=== PATIENT | male | born 1960 | race Caucasian/White ===

== ENCOUNTER 2017-01-05 15:51 | Emergency (ER) | payer BC ==
[~2017-01-05] VITALS: Ht 172.7 cm; Wt 63.9 kg
[~2017-01-05 15:51] MED LIST: OXYC-57 PO
[2017-01-05 15:56] VITALS: TEMP 36.8; Ht 172.7 cm; Wt 63.9 kg
[2017-01-05] MEDS ORDERED: DLSYL PO (16:08)
[2017-01-05] MEDS ORDERED: ALBUT/IPRATROP 3MG/0.5MG NEB 3 ML VIAL INH STA (16:28)
[2017-01-05] MEDS ORDERED: OPTIRAY 320 IV PRN (16:45)
[2017-01-05 16:48] LABS: BASO % 0.4 %; BASO ABS # 0.03 K/uL (0-0.2); COMPLETE YES; EOS % 9.7 %; HEMATOCRIT 41.6 % (42-52); IG% 0.3 %; LYMPH % 18.6 %; LYMPH ABS # 1.39 K/uL (1.2-3.4); MEAN CELL VOLUME 87.6 fL (80-100); MEAN CORPUSCULAR HEMOGLOBIN 30.1 pg (25-34); MEAN CORPUSCULAR HGB CONC 34.4 g/dl (32-36); MEAN PLATELET VOLUME 10.3 fL (7.4-10.4); MONO % 10.9 %; NEUT % 60.1 %; PLATELET COUNT 245 K/uL (130-400); RED BLOOD COUNT 4.75 M/uL (4.7-6.1); WHITE BLOOD COUNT 7.46 K/uL (4.8-10.8)
[2017-01-05 17:09] LABS: BLOOD UREA NITROGEN 12 mg/dl (7-18); BUN/CREATININE RATIO 12.5 (10-20); C-REACTIVE PROTEIN < 0.29 mg/dl (0-0.29); CALCIUM 8.5 mg/dl (8.5-10.1); CARBON DIOXIDE 24 mmol/L (21-32); CHLORIDE 111 mmol/L (98-107); CREATININE 0.97 mg/dl (0.60-1.40); GLUCOSE 88 mg/dl (70-99); POTASSIUM 3.7 mmol/L (3.5-5.1); SODIUM 143 mmol/L (136-145)
--- NOTE | 2017-01-05 17:53 | DIAGNOSTIC IMAGING REPORT ---
CT ANGIOGRAM OF THE CHEST CLINICAL HISTORY: Cough and dyspnea. COMPARISON STUDY: Abdominal CT dated 11/05/2009. TECHNIQUE: Following the IV administration of 101 cc of Optiray 320, CT angiogram of the chest was performed from the upper abdomen to the thoracic inlet utilizing the pulmonary embolus protocol. Images are reviewed in the axial, sagittal, and coronal planes. 3-D MIPS images are created and assessed. IV contrast was administered without complication. Note that interpretation is suboptimal without plain film correlate. CT DOSE: 216.65 mGy.cm FINDINGS: Thyroid: Imaged portions of the thyroid gland are normal in size and attenuation. Thoracic aorta: The thoracic aorta is normal in caliber and demonstrates standard 3-vessel arch anatomy. No dissection is seen. Pulmonary vasculature: The pulmonary trunk is normal in caliber. There are no filling defects identified in main, lobar, or segmental pulmonary branches to suggest pulmonary embolus. Heart: The heart is normal in size and configuration, and without pericardial effusion. Lungs and pleural spaces: There is no airspace consolidation or pleural effusion. Mild diffuse peribronchial thickening suggests reactive airway disease. Minimal dependent atelectasis is noted. The trachea and central airways are clear. A 3 mm anterior pleural-based nodule in the right middle lobe seen on image #95 is unchanged from 2009 and is of doubtful significance. Mediastinum: There are mildly enlarged mediastinal lymph nodes. A prevascular node on image #189 measures 1.2 cm short axis. A subcarinal node on image #160 measures 1.3 cm in short axis. Luba: There are mildly enlarged bilateral hilar lymph nodes. These measure up to 8 mm in short axis. Axillae: There is no axillary lymphadenopathy. Upper abdomen: Partially visualized upper abdominal viscera is within normal limits. Skeletal structures: No lytic or blastic bony lesions are seen. IMPRESSION: 1. There is no evidence of pulmonary embolus in the main, lobar, or segmental pulmonary arteries. 2. There is no airspace consolidation or pleural effusion. Mild diffuse peribronchial thickening suggests reactive air disease. Clinical correlation will be required. 3. Mildly enlarged mediastinal and hilar lymph nodes are nonspecific and may be on a reactive basis. Electronically signed by: Miguel Angel Verde M.D. 01/05/2017 5:51 PM Dictated Date/Time: 01/05/2017 5:46 PM
[2017-01-05] MEDS ORDERED: ALBUTEROL HFA 8 GM INHALER INH ONE (18:45)
[2017-01-05] MEDS ORDERED: HYDR5SYP11 PO (18:48)
[2017-01-05 19:19] VITALS: BP 120/82; PULSE 64; O2SAT 97
--- NOTE | 2017-01-05 23:28 | EMERGENCY ROOM VISIT NOTE ---
History First contact with patient: 16:11 Chief Complaint: COUGH Stated Complaint: COUGH, WHEEZING, UNBALE TO SLEEP Nursing Triage Summary: Pt states cough since . Has seen by PCP 3x. Pt states wheezing and unable to sleep more than two hours at night. History of Present Illness The patient is a 56 year old male who presents to the Emergency Room with complaints of persistent cough and shortness of breath since 10/26/2016. 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 He reports that the anti -freeze, used to heat the cab, leaked into the bottom of the cab. The patient reports that he had respiratory distress at that time. He then developed cold 3 days later with sore throat, myalgias, runny nose and sinus congestion. Since that time, the patient reports that he has had mentioned improvement and worsening of his condition. He has been on 2 different rounds of azithromycin, and recently treated with Augmentin. His last chest x-ray 2 weeks ago was normal. The patient reports that he is unable to sleep because of wheezing and cough. He is now complaining of generalized chest discomfort from coughing. The patient has an appointment to see Dr. Dodson, superintendent factory, on 01/10/17. He was referred to the emergency department because of worsening condition. The patient denies any abdominal pain, back pain, fevers or chills. He denies any discomfort radiating into the neck or arms. He denies headache. The patient denies any prior history of chronic lung issues. He currently rates his discomfort a 3 out of 10, which she again attributes to coughing. Review of Systems HEENT: Denies dizziness, visual problems, hearing loss, tinnitus. Denies difficulty swallowing or oral lesions. PULMONARY: See history of present illness. CARDIOVASCULAR: Denies palpitations, dyspnea on exertion, orthopnea or peripheral edema. GASTROINTESTINAL: Denies diarrhea, constipation, nausea, vomiting, or abdominal pain. GENITOURINARY: Denies dysuria, frequency, urgency or nocturia. NEUROLOGIC: Denies history of epilepsy, CVA, TIA or chronic headaches. MUSCULOSKELETAL: Denies history of joint tenderness/swelling. SKIN: Denies rashes or lesions. PSYCHIATRIC: Denies history of depression or mental illness. ENDOCRINE: Denies history of diabetes or thyroid disorders. Past Medical/Surgical History Medical Problems: (1) Calculus Of Kidney (2) Keratoderma, Acquired (3) Sciatica, Right Side (4) Unspecified sinusitis (chronic) Family History Unremarkable Social History Smoking Status: Never Smoker Alcohol Use: occasionally Marital Status: Housing Status: lives with family Occupation Status: employed Current/Historical Medications Scheduled PRN Dextromethorphan Polymr Complx (Delsym), 10 ML PO DAILY PRN for Cough Hydrocodone W/ Homatropine (Hycodan 5/1.5MG 5 Ml), 5-10 ML PO Q4H PRN for Cough Allergies Coded Allergies: No Known Allergies (Unverified , NONE, 01/05/17) Physical Exam Vital Signs Date Time Temp Pulse Resp B/P Pulse Ox O2 Delivery O2 Flow Rate FiO2 01/05/17 19:19 64 120/82 97 01/05/17 17:42 75 16 103/72 95 Room Air 01/05/17 16:08 78 01/05/17 15:56 36.8 85 18 130/85 95 Room Air Physical Exam CONSTITUTIONAL: Healthy and well nourished. Alert and oriented X 3 with positive affect. The patient has a frequent nonproductive cough. HEENT: Normocephalic, atraumatic. Pupils equal, round and reactive. No scleral icterus or conjunctival injection. No subconjunctival hemorrhage. OROPHARYNX: No tonsillar hypertrophy, postnasal drip or exudates. NECK: Full active range of motion without discomfort. No JVD or carotid bruits. LYMPHATICS: No cervical chain adenopathy. RESPIRATORY: The patient has expiratory wheezing and a few crackles in the left posterior lung hall. No bronchial rhonchi appreciated. CARDIOVASCULAR: Regular rate and rhythm with no murmurs, rubs or gallops. GASTROINTESTINAL: Bowel sounds present in all quadrants. Soft and nontender to palpation. MUSCULOSKELETAL: Full range of motion of all joints without discomfort. INTEGUMENTARY: No rash or other significant dermatologic conditions noted. NEUROLOGIC: No focal neurologic deficits noted. Medical Decision & Procedures ER Provider Diagnostic Interpretation: Chest CT angiography does not show any evidence for consolidations or pulmonary emboli. Radiologist is suggesting a reactive airway process. Radiologist report is as follows: CT ANGIOGRAM OF THE CHEST CLINICAL HISTORY: Cough and dyspnea. COMPARISON STUDY: Abdominal CT dated 11/05/2009. TECHNIQUE: Following the IV administration of 101 cc of Optiray 320, CT angiogram of the chest was performed from the upper abdomen to the thoracic inlet utilizing the pulmonary embolus protocol. Images are reviewed in the axial, sagittal, and coronal planes. 3-D MIPS images are created and assessed. IV contrast was administered without complication. Note that interpretation is suboptimal without plain film correlate. CT DOSE: 216.65 mGy.cm FINDINGS: Thyroid: Imaged portions of the thyroid gland are normal in size and attenuation. Thoracic aorta: The thoracic aorta is normal in caliber and demonstrates standard 3-vessel arch anatomy. No dissection is seen. Pulmonary vasculature: The pulmonary trunk is normal in caliber. There are no filling defects identified in main, lobar, or segmental pulmonary branches to suggest pulmonary embolus. Heart: The heart is normal in size and configuration, and without pericardial effusion. Lungs and pleural spaces: There is no airspace consolidation or pleural effusion. Mild diffuse peribronchial thickening suggests reactive airway disease. Minimal dependent atelectasis is noted. The trachea and central airways are clear. A 3 mm anterior pleural-based nodule in the right middle lobe seen on image #95 is unchanged from 2009 and is of doubtful significance. Mediastinum: There are mildly enlarged mediastinal lymph nodes. A prevascular node on image #189 measures 1.2 cm short axis. A subcarinal node on image #160 measures 1.3 cm in short axis. Luba: There are mildly enlarged bilateral hilar lymph nodes. These measure up to 8 mm in short axis. Axillae: There is no axillary lymphadenopathy. Upper abdomen: Partially visualized upper abdominal viscera is within normal limits. Skeletal structures: No lytic or blastic bony lesions are seen. IMPRESSION: 1. There is no evidence of pulmonary embolus in the main, lobar, or segmental pulmonary arteries. 2. There is no airspace consolidation or pleural effusion. Mild diffuse peribronchial thickening suggests reactive air disease. Clinical correlation will be required. 3. Mildly enlarged mediastinal and hilar lymph nodes are nonspecific and may be on a reactive basis. Laboratory Results 01/05/17 16:30 Red Blood Count 4.75, Mean Corpuscular Volume 87.6, Mean Corpuscular Hemoglobin 30.1, Mean Corpuscular Hemoglobin Concent 34.4, Mean Platelet Volume 10.3, Neutrophils (%) (Auto) 60.1, Lymphocytes (%) (Auto) 18.6, Monocytes (%) (Auto) 10.9, Eosinophils (%) (Auto) 9.7, Basophils (%) (Auto) 0.4, Neutrophils # (Auto ) 4.49, Lymphocytes # (Auto) 1.39, Monocytes # (Auto) 0.81, Eosinophils # (Auto ) 0.72, Basophils # (Auto) 0.03 01/05/17 16:30 Test 01/05/17 16:30 White Blood Count 7.46 K/uL (4.8-10.8) Red Blood Count 4.75 M/uL (4.7-6.1) Hemoglobin 14.3 g/dL (14.0-18.0) Hematocrit 41.6 % (42-52) Mean Corpuscular Volume 87.6 fL (80-100) Mean Corpuscular Hemoglobin 30.1 pg (25-34) Mean Corpuscular Hemoglobin Concent 34.4 g/dl (32-36) Platelet Count 245 K/uL (130-400) Mean Platelet Volume 10.3 fL (7.4-10.4) Neutrophils (%) (Auto) 60.1 % Lymphocytes (%) (Auto) 18.6 % Monocytes (%) (Auto) 10.9 % Eosinophils (%) (Auto) 9.7 % Basophils (%) (Auto) 0.4 % Neutrophils # (Auto) 4.49 K/uL (1.4-6.5) Lymphocytes # (Auto) 1.39 K/uL (1.2-3.4) Monocytes # (Auto) 0.81 K/uL (0.11-0.59) Eosinophils # (Auto) 0.72 K/uL (0-0.5) Basophils # (Auto) 0.03 K/uL (0-0.2) RDW Standard Deviation 43.3 fL (36.4-46.3) RDW Coefficient of Variation 13.5 % (11.5-14.5) Immature Granulocyte % (Auto) 0.3 % Immature Granulocyte # (Auto) 0.02 K/uL (0.00-0.02) Erythrocyte Sedimentation Rate 5 mm/hr (0-14) Anion Gap 8.0 mmol/L (3-11) Est Creatinine Clear Calc Drug Dose 75.0 ml/min Estimated GFR () 99.3 Estimated GFR (Non- 85.7 BUN/Creatinine Ratio 12.5 (10-20) Calcium Level 8.5 mg/dl (8.5-10.1) C-Reactive Protein < 0.29 mg/dl (0-0.29) The above labs were reviewed and were grossly normal. Sedimentation rate and CRP, along with white count, are normal. Medications Administered Medications (Trade) Dose Ordered Sig/Yvrose Route Start Time Stop Time Status Last Admin Dose Admin Albuterol/ Ipratropium (Duoneb) 3 ml NOW STAT INH 01/05/17 16:28 01/05/17 16:30 DC 01/05/17 16:33 3 ML Albuterol (Ventolin Hfa Inhaler) 2 puffs NOW ONCE INH 01/05/17 18:45 01/05/17 18:46 DC 01/05/17 19:13 2 PUFFS Procedure The patient received a unit dose DuoNeb treatment with significant relief of his cough. ED Course Patient history and physical exam were performed. Nurse's notes were reviewed. Vital signs were reviewed and normal with an O2 saturation of 97% on my exam. He is also normotensive and afebrile. Heart rate is also normal. Because the patient has had no resolution of his symptoms with antibiotic, steroid and inhaler treatment, I did elect to perform a more extensive workup. IV access was established, and labs were drawn. Labs were reviewed and were normal. The patient was administered a DuoNeb treatment with moderately of his cough. Chest CT angiography shows no evidence for consolidations or ulnar emboli. A reactive airway process is suggested. The patient was dispensed a Ventolin metered-dose inhaler and AeroChamber. He was instructed to follow-up with Dr. Dodson as currently scheduled. I will defer further antibiotic and corticosteroid treatment at this time as it has not seemed to make any improvement in the patient's symptoms. The patient was provided a prescription for Hycodan cough syrup as he has not been able to sleep because of the cough. He was warned about sedation while taking Hycodan. The patient and were happy with plan of care, and voiced understanding of all discharge instructions. Medical Decision She presents to the emergency department with a 2+ month history of cough and shortness of breath. The patient did initially have possible chemical irritation with antifreeze. Shortly after that, he also developed viral upper respiratory symptoms. The patient has not responded well to antibiotics, corticosteroids or other OTC medications. His workup today does not show any evidence for pneumonia or pulmonary emboli. CT studies do show a reactive airway process. Do not suspect cardiac etiology. Impression Primary Impression: Reactive airway disease with acute exacerbation Departure Information Prescriptions Hydrocodone W/ Homatropine (HYCODAN 5/1.5MG 5 ML) 1 Syp Syp 5-10 ML PO Q4H Y for Cough, #200 ML Prov: Lopez Alvarenga PA 01/05/17 Referrals Tommy Luis PA-C (PCP) Patient Instructions My [facility]
== END 2017-01-05 19:20 | disposition home or self-care (01) ==
LOC: C.EDB 15:52 → C.EDA 19:20
DX: J45.901 Unspecified asthma with (acute) exacerbation (principal); Z87.442 Personal history of urinary calculi; M54.31 Sciatica, right side; J32.9 Chronic sinusitis, unspecified

== ENCOUNTER → 2017-05-08 | Outpatient (CLI) | payer BC ==
[~2017-05-08] MED LIST changes: +DLSYL PO; +OPTIRAY 320 IV PRN; -OXYC-57 PO
--- NOTE | 2017-05-08 16:27 | DIAGNOSTIC IMAGING REPORT ---
CT OF THE CHEST WITH IV CONTRAST CLINICAL HISTORY: Abnormal finding on lung imaging. COMPARISON STUDY: Chest CT January 05, 2017. TECHNIQUE: Following IV administration of 93 mL of Optiray-320, helical axial images of the chest were obtained. Sagittal and coronal reconstructions were viewed as well as maximal intensity projections on an independent 3-D workstation CT DOSE: 215.91 mGycm FINDINGS: No enlarged thoracic lymph nodes are present. The previously described mildly enlarged mediastinal and hilar lymph nodes shown on exam of January 05, 2017 are now normal in size. The size of the heart is normal. There is no pericardial effusion. The central airways are patent. A few tiny subpleural nodules are unchanged and are benign. No new nodules are present. There is no consolidation to suggest pneumonia. Bronchial wall thickening shown on prior CT has resolved. The bony thorax and upper abdomen are unremarkable. IMPRESSION: 1. Interval resolution of mediastinal and hilar lymphadenopathy shown on CT of January 05, 2017. 2. Interval resolution of bronchial wall thickening shown on prior CT. 3. No acute intrathoracic findings. Electronically signed by: Jeremiah Suoza M.D. 05/08/2017 4:26 PM Dictated Date/Time: 05/08/2017 4:18 PM
== END | disposition home or self-care (01) ==
LOC: C.CTS 15:58
PROVIDERS: ATTEND Physician Assistant Medical
DX: R91.8 Other nonspecific abnormal finding of lung field (principal)

== ENCOUNTER → 2017-09-13 | Outpatient (CLI) | payer BC ==
[~2017-09-13] MED LIST changes: -OPTIRAY 320 IV PRN
--- NOTE | 2017-09-13 14:53 | DIAGNOSTIC IMAGING REPORT ---
SINUSES-MAXILLOFACIAL W/O HISTORY: 56 years-old Male J01.10 Acute frontal sinusitis acute sinus disease with coughing and post nasal drip COMPARISON: CT maxillofacial sinus study 10/07/2010 TECHNIQUE: Multiple axial CT images of the paranasal sinuses and maxillofacial bones were obtained without contrast. A dose lowering technique was used consistent with the principals of ARACELI. FINDINGS: Mastoid air cells and middle ear cavities are clear. There is mild mucosal thickening of the inferior and superior left maxillary sinus with mild diffuse mucosal thickening throughout the right maxillary sinus. The right frontal sinus is nearly completely opacified. Left frontal sinus is generally clear. There is a moderate mucosal thickening are seen within several ethmoid air cells. There are bubbly secretions along the right lateral sphenoid sinus. Minimal left sphenoid sinus disease. Mild mucosal thickening with patency of the bilateral sphenoethmoidal recesses. The left frontoethmoidal recess is patent. There is severe mucosal thickening of the right frontal ethmoidal recess. Right greater than left lateral Clementine cells redemonstrated. The bilateral ostiomeatal units are patent. S-shaped curvature of the nasal septum is again noted with rightward bony spurring. No acute facial bone fracture or dislocation identified. Moderate to severe left facet arthropathy noted at C2-C3, only partially imaged. Mild cerebral atrophy. No acute intracranial abnormality identified. The soft tissues are unremarkable. IMPRESSION: 1. Severe mucosal thickening of the right frontal sinus which is nearly completely opacified. Additionally, there is mucosal opacification of the right frontal ethmoidal recess. 2. Several ethmoid air cells demonstrate moderate mucosal thickening. Only mild bilateral maxillary sinus disease is noted with patency of the bilateral maxillary ostiomeatal units. 3. Mild bubbly secretions of the right sphenoid sinus. 4. Right greater than left bilateral Clementine cells. The above report was generated using voice recognition software. It may contain grammatical, syntax or spelling errors. Electronically signed by: Ortega Galicia M.D. 09/13/2017 2:52 PM Dictated Date/Time: 09/13/2017 2:45 PM
== END | disposition home or self-care (01) ==
LOC: C.CTS 14:34
PROVIDERS: ATTEND Internal Medicine Pulmonary Disease
DX: J01.10 Acute frontal sinusitis, unspecified (principal)

== ENCOUNTER 2017-09-22 18:13 | Emergency (ER) | payer BC ==
[~2017-09-22] VITALS: Ht 167.6 cm; Wt 63.3 kg
[2017-09-22 18:16] VITALS: TEMP 37.1; Ht 167.6 cm; Wt 63.3 kg
[2017-09-22] MEDS ORDERED: KETOROLAC TROMETHAMINE 30 MG/ML VIAL IV STA (18:26)
[2017-09-22 19:03] LABS: BASO % 0.3 %; BASO ABS # 0.02 K/uL (0-0.2); COMPLETE YES; EOS % 2.5 %; HEMATOCRIT 42.6 % (42-52); IG% 0.2 %; LYMPH % 39.1 %; LYMPH ABS # 2.32 K/uL (1.2-3.4); MEAN CELL VOLUME 90.3 fL (80-100); MEAN CORPUSCULAR HEMOGLOBIN 31.1 pg (25-34); MEAN CORPUSCULAR HGB CONC 34.5 g/dl (32-36); MEAN PLATELET VOLUME 10.2 fL (7.4-10.4); MONO % 8.1 %; NEUT % 49.8 %; PLATELET COUNT 245 K/uL (130-400); RED BLOOD COUNT 4.72 M/uL (4.7-6.1); WHITE BLOOD COUNT 5.93 K/uL (4.8-10.8)
[2017-09-22 19:15] LABS: URINE APPEARANCE CLEAR (CLEAR); URINE BILIRUBIN NEG (NEG); URINE COLOR YELLOW; URINE EPITHELIAL CELL AUTO 0-5 /lpf (0-5); URINE NITRITE NEG (NEG); UROBILINOGEN NEG (NEG)
[2017-09-22 19:19] LABS: BUN/CREATININE RATIO 11.9 (10-20); CALCIUM 8.8 mg/dl (8.5-10.1); CREATININE 1.05 mg/dl (0.60-1.40); POTASSIUM 3.3 mmol/L (3.5-5.1)
[2017-09-22 19:29] LABS: MANUAL MICROSCOPIC REQUIRED? NO; REVIEW REQ? NO
--- NOTE | 2017-09-22 20:09 | DIAGNOSTIC IMAGING REPORT ---
CT OF THE ABDOMEN AND PELVIS WITHOUT CONTRAST, STONE PROTOCOL CLINICAL HISTORY: Left flank pain. Evaluate for stone. COMPARISON STUDY: CT of the abdomen and pelvis November 05, 2009. TECHNIQUE: Helical axial images of the abdomen and pelvis were obtained without IV or oral contrast according to renal stone protocol. A dose lowering technique was utilized adhering to the principles of ALARA. FINDINGS: A 4 mm subpleural nodule with the left lower lobe is unchanged since CT of November 05, 2009. Unenhanced images of the liver, spleen, adrenal glands and pancreas are unremarkable with the exception of a few pancreatic parenchymal calcifications which could indicate chronic pancreatitis. However, the gland is not atrophic. There is no peripancreatic infiltration. Several right renal calculi measure up to 7 mm. There are no ureteral calculi and there is no hydronephrosis. There is mild bladder wall thickening. No lymphadenopathy is present there is extensive sigmoid diverticulosis without evidence for acute diverticulitis. There is no free air. No suspicious skeletal lesions are identified. IMPRESSION: 1. Right-sided nephrolithiasis. No ureteral calculi or hydronephrosis. 2. Extensive sigmoid diverticulosis without evidence for acute diverticulitis. 3. Mild bladder wall thickening which could be correlated with urinalysis. Electronically signed by: Jeremiah Souza M.D. 09/22/2017 8:07 PM Dictated Date/Time: 09/22/2017 8:01 PM
[2017-09-22] MEDS ORDERED: OXYCODONE IR HOME PACK PO ONE (20:45)
[2017-09-22] MEDS ORDERED: NAPR1TAB9 PO (20:46)
[2017-09-22] MEDS ORDERED: ACET-1256 PO (20:46)
[2017-09-22 20:55] VITALS: BP 119/75; PULSE 82; O2SAT 97
--- NOTE | 2017-09-22 23:39 | EMERGENCY ROOM VISIT NOTE ---
History Report prepared by Gilles: Mila Scott Under the Supervision of: Dr. Thanh Ch M.D. First contact with patient: 18:20 Chief Complaint: KIDNEY STONE Stated Complaint: KIDNEY STONE - PAINFUL 8 SLOW URINATION History of Present Illness The patient is a 56 year old male who presents to the Emergency Room with complaints of persistent left flank pain starting 5 days ago. The patient thinks he might have a kidney stone. He has a history of kidney stones. The pain does not wrap around to the front or radiate down his legs. He is having pain with urination. His urine has been stopping and starting midstream. He is unsure if there is blood in his urine. He notes that he was unable to see any blood in his urine with his previous kidney stone. He had some diarrhea the day he started having pain with urination. He has not had any diarrhea since that day. He denies any vomiting or fever. He recently had a cough and was diagnosed with a sinus infection. He finished a course of Augmentin yesterday. He denies any other medical problems. Source of History: patient Onset: 5 days ago Position: other (left flank) Quality: other (pain) Timing: other (persistent) Associated Symptoms: + diarrhea (resolved), + urinary symptoms, No fevers, No vomiting Review of Systems See HPI for pertinent positives & negatives. A total of 10 systems reviewed and were otherwise negative. Past Medical & Surgical Medical Problems: (1) Calculus Of Kidney (2) Keratoderma, Acquired (3) Sciatica, Right Side (4) Unspecified sinusitis (chronic) Family History No pertinent family history stated. Social History Smoking Status: Never Smoker Alcohol Use: occasionally Marital Status: Housing Status: lives with family Occupation Status: employed Current/Historical Medications Scheduled Naproxen (Aleve), 220 MG PO PRN Scheduled PRN Acetaminophen (Tylenol), 1,000 MG PO Q6 PRN for Pain or Fever Allergies Coded Allergies: No Known Allergies (Unverified , NONE, 01/05/17) Physical Exam Vital Signs Date Time Temp Pulse Resp B/P (MAP) Pulse Ox O2 Delivery O2 Flow Rate FiO2 09/22/17 20:55 82 18 119/75 97 09/22/17 18:16 37.1 100 18 124/61 96 Room Air Physical Exam Constitutional: Vital signs reviewed. Eyes: Pupils are equal round reactive to light. Conjunctiva are noninjected. ENT: Pharynx is clear without erythema or exudate. Mucous membranes are moist. Neck supple without meningeal signs. Respiratory: Clear to auscultation bilaterally. Breath sounds are equal bilaterally. Cardiovascular: Regular rate and rhythm. No rubs or gallops. GI: Soft, nondistended and nontender. Bowel sounds are present. Musculoskeletal: No peripheral edema. No CVA tenderness. No midline tenderness to the lumbosacral spine. Integumentary: No cyanosis. Neurological: The patient is awake and alert. No focal deficits. Psychiatric: Normal affect. Medical Decision & Procedures ER Provider Diagnostic Interpretation: Radiology results as stated below per my review and the radiologist's interpretation: CT OF THE ABDOMEN AND PELVIS WITHOUT CONTRAST, STONE PROTOCOL CLINICAL HISTORY: Left flank pain. Evaluate for stone. COMPARISON STUDY: CT of the abdomen and pelvis November 05, 2009. TECHNIQUE: Helical axial images of the abdomen and pelvis were obtained without IV or oral contrast according to renal stone protocol. A dose lowering technique was utilized adhering to the principles of ALARA. FINDINGS: A 4 mm subpleural nodule with the left lower lobe is unchanged since CT of November 05, 2009. Unenhanced images of the liver, spleen, adrenal glands and pancreas are unremarkable with the exception of a few pancreatic parenchymal calcifications which could indicate chronic pancreatitis. However, the gland is not atrophic. There is no peripancreatic infiltration. Several right renal calculi measure up to 7 mm. There are no ureteral calculi and there is no hydronephrosis. There is mild bladder wall thickening. No lymphadenopathy is present there is extensive sigmoid diverticulosis without evidence for acute diverticulitis. There is no free air. No suspicious skeletal lesions are identified. IMPRESSION: 1. Right-sided nephrolithiasis. No ureteral calculi or hydronephrosis. 2. Extensive sigmoid diverticulosis without evidence for acute diverticulitis. 3. Mild bladder wall thickening which could be correlated with urinalysis. Electronically signed by: Jeremiah Souza M.D. 09/22/2017 8:07 PM Dictated Date/Time: 09/22/2017 8:01 PM Laboratory Results 09/22/17 18:44 Red Blood Count 4.72, Mean Corpuscular Volume 90.3, Mean Corpuscular Hemoglobin 31.1, Mean Corpuscular Hemoglobin Concent 34.5, Mean Platelet Volume 10.2, Neutrophils (%) (Auto) 49.8, Lymphocytes (%) (Auto) 39.1, Monocytes (%) (Auto) 8.1, Eosinophils (%) (Auto) 2.5, Basophils (%) (Auto) 0.3, Neutrophils # (Auto) 2.95, Lymphocytes # (Auto) 2.32, Monocytes # (Auto) 0.48, Eosinophils # (Auto) 0.15, Basophils # (Auto) 0.02 09/22/17 18:44 Test 09/22/17 18:40 09/22/17 18:44 Urine Color YELLOW Urine Appearance CLEAR (CLEAR) Urine pH 7.0 (4.5-7.5) Urine Specific [place] 1.010 (1.000-1.030) Urine Protein NEG (NEG) Urine Glucose (UA) NEG (NEG) Urine Ketones NEG (NEG) Urine Occult Blood 1+ (NEG) Urine Nitrite NEG (NEG) Urine Bilirubin NEG (NEG) Urine Urobilinogen NEG (NEG) Urine Leukocyte Esterase NEG (NEG) Urine WBC (Auto) 0 /hpf (0-5) Urine RBC (Auto) 0-4 /hpf (0-4) Urine Hyaline Casts (Auto) 0 /lpf (0-5) Urine Epithelial Cells (Auto) 0-5 /lpf (0-5) Urine Bacteria (Auto) NEG (NEG) White Blood Count 5.93 K/uL (4.8-10.8) Red Blood Count 4.72 M/uL (4.7-6.1) Hemoglobin 14.7 g/dL (14.0-18.0) Hematocrit 42.6 % (42-52) Mean Corpuscular Volume 90.3 fL (80-100) Mean Corpuscular Hemoglobin 31.1 pg (25-34) Mean Corpuscular Hemoglobin Concent 34.5 g/dl (32-36) Platelet Count 245 K/uL (130-400) Mean Platelet Volume 10.2 fL (7.4-10.4) Neutrophils (%) (Auto) 49.8 % Lymphocytes (%) (Auto) 39.1 % Monocytes (%) (Auto) 8.1 % Eosinophils (%) (Auto) 2.5 % Basophils (%) (Auto) 0.3 % Neutrophils # (Auto) 2.95 K/uL (1.4-6.5) Lymphocytes # (Auto) 2.32 K/uL (1.2-3.4) Monocytes # (Auto) 0.48 K/uL (0.11-0.59) Eosinophils # (Auto) 0.15 K/uL (0-0.5) Basophils # (Auto) 0.02 K/uL (0-0.2) RDW Standard Deviation 43.1 fL (36.4-46.3) RDW Coefficient of Variation 13.0 % (11.5-14.5) Immature Granulocyte % (Auto) 0.2 % Immature Granulocyte # (Auto) 0.01 K/uL (0.00-0.02) Anion Gap 8.0 mmol/L (3-11) Est Creatinine Clear Calc Drug Dose 68.7 ml/min Estimated GFR () 90.3 Estimated GFR (Non- 77.9 BUN/Creatinine Ratio 11.9 (10-20) Calcium Level 8.8 mg/dl (8.5-10.1) Total Bilirubin 0.9 mg/dl (0.2-1) Direct Bilirubin 0.2 mg/dl (0-0.2) Aspartate Amino Transf (AST/SGOT) 32 U/L (15-37) Alanine Aminotransferase (ALT/SGPT) 32 U/L (12-78) Alkaline Phosphatase 98 U/L (45-117) Total Protein 7.2 gm/dl (6.4-8.2) Albumin 3.9 gm/dl (3.4-5.0) Lipase 165 U/L (73-393) Laboratory results as reviewed by me. Medications Administered Medications (Trade) Dose Ordered Sig/Yvrose Route Start Time Stop Time Status Last Admin Dose Admin Ketorolac Tromethamine (Toradol Inj) 10 mg NOW STAT IV 09/22/17 18:26 09/22/17 18:28 DC 09/22/17 19:28 10 MG Oxycodone HCl (Roxicodone Immediate Rel 5MG Home Pack) 1 homepack UD ONCE PO 09/22/17 20:45 09/22/17 20:46 DC 09/22/17 20:50 1 HOMEPACK ED Course 1821: The patient was evaluated in room B10. A complete history and physical exam was performed. 1825: Toradol Inj 10 mg IV. 2019: I reevaluated the patient. I discussed the test results with him and his in detail. He says that he has had a herniated disc in the back. He verbalized agreement of the treatment plan. He was discharged home. 2044: Oxycodone HCl 1 homepack PO. Medical Decision This is a 56-year-old male who presents with flank pain. Differential diagnosis includes kidney stone, hydronephrosis, diverticulitis, strain, UTI, pyelonephritis. I did perform a limited focused review of portions of the patient's old chart on the electronic medical record. The patient has had no recent pertinent visits to this hospital. I did evaluate the patient as noted above. The patient is presenting with left lower back pain which she feels consistent with his prior renal colic pain. He does also state that he has intervertebral disc disease as well. His pain does not radiate anywhere and he has no neurologic deficits. IV access was established. I did treat patient with IV Toradol. I did order and personally review the patient's urine analysis as described above. He does have microscopic hematuria but no evidence of infection. He does state that he has had dysuria but he urinated twice in the ED and stated he had no pain with urination here. I did order and review the patient's blood work as noted in the electronic medical record. His potassium is 3.3 but otherwise his labs are unremarkable. I did order a CT of the abdomen and pelvis. I did review the images myself as well as the radiology report as described above. CT scan does not show any acute process. He does have a right intrarenal stone. He also has a pulmonary nodule which is unchanged from his prior CT. He also has diverticulosis without evidence of diverticulitis. I did reevaluate the patient. He is feeling better. I did discuss the test results with him and his . I did review the incidental findings as well. He was advised to follow up closely with his doctor. It is unclear whether his pain may be due to his intervertebral disc disease or possibly a small stone that he passed. The patient was discharged in condition. Medication Reconcilliation Current Medication List: was personally reviewed by me Blood Pressure Screening Patient's blood pressure: Normal blood pressure Blood pressure disposition: Did not require urgent referral Impression Primary Impression: Left flank pain Additional Impressions: Diverticulosis Pulmonary nodule Scribe Attestation The scribe's documentation has been prepared under my direct and personally reviewed by me in its entirety. I confirm that the note above accurately reflects all work, treatment, procedures, and medical decision making performed by me. Departure Information Dispostion Home / Self-Care Referrals Tommy Luis PA-C (PCP) Forms HOME CARE DOCUMENTATION FORM, IMPORTANT VISIT INFORMATION Patient Instructions ED Diverticulosis, ED Flank Pain Uncertain Cause, ED Nodule Solitary Pulmonary, My [facility] Additional Instructions You have been examined and treated today on an emergency basis only. This is not a substitute for, or an effort to provide, complete comprehensive medical care. It is impossible to recognize and treat all injuries or illnesses in a single emergency department visit. It is therefore important that you follow up closely with your physician. Call as soon as possible for an appointment. Return for worsening symptoms or if you develop fever, vomiting, or any other concerning symptoms. Problem Qualifiers Additional Impressions: Diverticulosis Diverticulosis site: diverticulosis of large intestine Diverticulosis bleeding: diverticulosis without bleeding Qualified Codes: K57.30 - Diverticulosis of large intestine without perforation or abscess without bleeding
== END 2017-09-22 20:55 | disposition home or self-care (01) ==
LOC: C.EDB 18:14
DX: K57.90 Diverticulosis of intestine, part unspecified, without perforation or abscess without bleeding (principal); R91.1 Solitary pulmonary nodule; Z87.442 Personal history of urinary calculi

== ENCOUNTER 2017-10-14 15:33 | Emergency (ER) | payer BC ==
[~2017-10-14] VITALS: Ht 167.6 cm; Wt 61.2 kg
[~2017-10-14 15:33] MED LIST changes: +ACET-1256 PO; -DLSYL PO; +NAPR1TAB9 PO
[2017-10-14 15:47] VITALS: TEMP 36.6; Ht 167.6 cm; Wt 61.2 kg
[2017-10-14] MEDS ORDERED: ALBUT/IPRATROP 3MG/0.5MG NEB 3 ML VIAL INH ONE (16:30)
[2017-10-14 16:39] VITALS: PULSE 78; O2SAT 97
[2017-10-14 16:47] VITALS: O2SAT 100
[2017-10-14] MEDS ORDERED: MOME200A INH (16:47)
[2017-10-14] MEDS ORDERED: HYDR0.75 PO (16:47)
[2017-10-14] MEDS ORDERED: VNTHFA/IN INH (16:47)
[2017-10-14] MEDS ORDERED: ALBINS INH (16:47)
--- NOTE | 2017-10-14 16:53 | EMERGENCY ROOM VISIT NOTE ---
History Report prepared by Gilles: Stacey Rico Under the Supervision of: Dr. Durga Padron D.O. First contact with patient: 16:16 Chief Complaint: RESPIRATORY PROBLEMS Stated Complaint: WHEEZING,COUGH,TROUBLE BREATHING Nursing Triage Summary: sinus issues and resp for almost 1 year pt to see ENT about sinus issues pt presents today with productive cough increase illness since yesterday History of Present Illness The patient is a 56 year old male who presents to the Emergency Room with complaints of constant productive cough beginning a month ago. The patient states that his cough started to worsen yesterday. He denies any chest pain, leg swelling, fever, nausea, or vomiting. A year ago, the patient followed up with a medical technologist clinical because he accidently inhaled antifreeze at work. At that time, he was diagnosed with restrictive airway disease. The patient uses a inhaler every four hours and Dulera. The patient also followed up with Dr. Bautista -medical technologist clinical in September for follow up and was given a nebulizer.The patient' s last nebulizer treatment was just prior to arrival and he had no relief. The patient was seen in the ED a couple weeks ago for kidney stones and had a CT of his chest and abdomen done. His chest CT showed polyps which the patient was already aware of and otherwise was unremarkable. He also reports having a sinus infection a month ago and was put on antibiotics. The antibiotics helped the patient's cough as well. The patient has a follow up with ENT next week. Source of History: patient Onset: a month ago Position: other (generalized) Quality: other (cough) Timing: constant Associated Symptoms: + cough, + SOB, No chest pain, No nausea, No vomiting Note: See HPI for pertinent positives & negatives. A total of 10 systems reviewed and were otherwise negative. Review of Systems See HPI for pertinent positives & negatives. A total of 10 systems reviewed and were otherwise negative. Past Medical & Surgical Medical Problems: (1) Calculus Of Kidney (2) Keratoderma, Acquired (3) Sciatica, Right Side (4) Unspecified sinusitis (chronic) Family History Patient reports no known family medical history. Social History Smoking Status: Never Smoker Alcohol Use: occasionally Marital Status: Housing Status: lives with family Occupation Status: employed Current/Historical Medications Scheduled Albuterol Sulf (Albuterol Sulfate), 1 AMP INH DIRECTED Albuterol Sulfate (Albuterol Sulfate), 1 VIAL NEB Q4 Amoxicillin & Pot Clavulanate (Augmentin 875-125 mg), 875 MG PO BID Mometasone Furoate-Formoterol (Dulera 200/5 Mcg), 2 PUFFS INH BID Naproxen (Aleve), 220 MG PO PRN Prednisone (Prednisone Tab), 40 MG PO DAILY Scheduled PRN Acetaminophen (Tylenol), 1,000 MG PO Q6 PRN for Pain or Fever Albuterol Hfa (Ventolin Hfa), 2-4 PUFFS INH Q4H PRN for SOB/Wheezing Hydrocodone/Homatropine (Hydromet), 1-2 TSP PO Q4H PRN for Cough Allergies Coded Allergies: No Known Allergies (Unverified , NONE, 10/14/17) Physical Exam Vital Signs Date Time Temp Pulse Resp B/P (MAP) Pulse Ox O2 Delivery O2 Flow Rate FiO2 10/14/17 20:39 97 18 110/76 99 Room Air 10/14/17 19:17 91 18 115/70 97 Room Air 10/14/17 18:16 101 18 116/79 100 Room Air 10/14/17 16:57 90 20 119/74 99 Nebulizer 10/14/17 16:49 98 10/14/17 16:47 100 10/14/17 16:45 100 Nebulizer 10/14/17 16:39 78 16 97 Room Air 10/14/17 15:50 94 Room Air 10/14/17 15:47 36.6 77 20 116/65 94 Room Air Physical Exam GENERAL: Patient is awake, alert, and in no acute distress. Patient is resting comfortably and somewhat anxious. EYES: The conjunctivae are clear. The pupils are round and reactive. EARS, NOSE, MOUTH AND THROAT: The nose is without any evidence of any deformity. Mucous membranes are moist tongue is midline NECK: The neck is nontender and supple. RESPIRATORY: Diminished lung sounds with expiratory wheezing and significant conversational dyspnea and wheezing throughout. Normal respiratory effort is noted there is no evidence of wheezing rhonchi or rales CARDIOVASCULAR: tachycardiac rate and regular rhythm noted there no murmurs rubs or gallops normal S1 normal S2 GASTROINTESTINAL: The abdomen is soft. Bowel sounds are present in all quadrants. Abdomen is nontender MUSCULOSKELETAL/EXTREMITIES: There is no evidence of gross deformity full range of motion is noted in the hips and shoulders SKIN: There is no obvious evidence of any rash. There are no petechiae, pallor or cyanosis noted. NEUROLOGIC: Patient is awake alert and oriented x3 Medical Decision & Procedures ER Provider Diagnostic Interpretation: Radiology results as stated below per my review and radiologist interpretation: CHEST ONE VIEW PORTABLE FINDINGS: Lung volumes are normal. No pneumothorax or pleural effusion is present. There is no evidence of pulmonary edema. No consolidation is identified to suggest pneumonia. Cardiomediastinal silhouette is normal. IMPRESSION: No acute cardiopulmonary findings. Electronically signed by: Jeremiah Souza M.D. CT ANGIOGRAPHY OF THE CHEST, PULMONARY EMBOLUS PROTOCOL FINDINGS: No pulmonary emboli are identified. The size of the heart is normal. There is no thoracic aortic dissection. There has been interval development of mild mediastinal and bilateral hilar lymphadenopathy since CT of May 08, 2017. Similar findings were shown on earlier chest CT of January 05, 2017. Index AP window lymph node measures 1 cm in short axis diameter. Index subcarinal node measures 1.1 cm in short axis diameter. Diffuse bronchial wall thickening is most evident within the lower lobes. Mild mucus is noted within multiple lower lobe bronchi. There is no consolidation to suggest pneumonia. No pneumothorax or pleural effusion is present. There is no cavitation. A few pancreatic parenchymal calcifications are present. IMPRESSION: 1. No pulmonary emboli identified. 2. Diffuse bronchial wall thickening which was shown on an earlier CT of January 05, 2017. No consolidation to suggest pneumonia. 3. Interval development of mild mediastinal and bilateral hilar lymphadenopathy since CT of May 08, 2017. However, similar lymphadenopathy was shown on CT of January 05, 2017 and this lymphadenopathy is likely reactive. Electronically signed by: Jeremiah Souza M.D. Laboratory Results 10/14/17 16:35 Red Blood Count 4.86, Mean Corpuscular Volume 89.1, Mean Corpuscular Hemoglobin 30.7, Mean Corpuscular Hemoglobin Concent 34.4, Mean Platelet Volume 10.0, Neutrophils (%) (Auto) 80.1, Lymphocytes (%) (Auto) 8.2, Monocytes (%) (Auto) 8.4, Eosinophils (%) (Auto) 2.6, Basophils (%) (Auto) 0.3, Neutrophils # (Auto) 9.70, Lymphocytes # (Auto) 1.00, Monocytes # (Auto) 1.02, Eosinophils # (Auto) 0.32, Basophils # (Auto) 0.04 10/14/17 16:35 Test 10/14/17 16:35 10/14/17 16:49 10/14/17 16:55 10/14/17 17:30 White Blood Count 12.13 K/uL (4.8-10.8) Red Blood Count 4.86 M/uL (4.7-6.1) Hemoglobin 14.9 g/dL (14.0-18.0) Hematocrit 43.3 % (42-52) Mean Corpuscular Volume 89.1 fL (80-100) Mean Corpuscular Hemoglobin 30.7 pg (25-34) Mean Corpuscular Hemoglobin Concent 34.4 g/dl (32-36) Platelet Count 249 K/uL (130-400) Mean Platelet Volume 10.0 fL (7.4-10.4) Neutrophils (%) (Auto) 80.1 % Lymphocytes (%) (Auto) 8.2 % Monocytes (%) (Auto) 8.4 % Eosinophils (%) (Auto) 2.6 % Basophils (%) (Auto) 0.3 % Neutrophils # (Auto) 9.70 K/uL (1.4-6.5) Lymphocytes # (Auto) 1.00 K/uL (1.2-3.4) Monocytes # (Auto) 1.02 K/uL (0.11-0.59) Eosinophils # (Auto) 0.32 K/uL (0-0.5) Basophils # (Auto) 0.04 K/uL (0-0.2) RDW Standard Deviation 42.2 fL (36.4-46.3) RDW Coefficient of Variation 12.9 % (11.5-14.5) Immature Granulocyte % (Auto) 0.4 % Immature Granulocyte # (Auto) 0.05 K/uL (0.00-0.02) Prothrombin Time 10.8 SECONDS (9.0-12.0) Prothromb Time International Ratio 1.0 (0.9-1.1) Activated Partial Thromboplast Time 26.1 SECONDS (21.0-31.0) Partial Thromboplastin Ratio 1.0 Anion Gap 3.0 mmol/L (3-11) Est Creatinine Clear Calc Drug Dose 58.6 ml/min Estimated GFR () 77.6 Estimated GFR (Non- 66.9 BUN/Creatinine Ratio 8.5 (10-20) Calcium Level 8.4 mg/dl (8.5-10.1) Total Bilirubin 0.6 mg/dl (0.2-1) Aspartate Amino Transf (AST/SGOT) 28 U/L (15-37) Alanine Aminotransferase (ALT/SGPT) 32 U/L (12-78) Alkaline Phosphatase 98 U/L (45-117) Troponin I < 0.015 ng/ml (0-0.045) Total Protein 7.2 gm/dl (6.4-8.2) Albumin 3.7 gm/dl (3.4-5.0) Globulin 3.5 gm/dl (2.5-4.0) Albumin/Globulin Ratio 1.1 (0.9-2) Bedside D-Dimer > 450 ng/mlFEU (0-450) Influenza Type A (RT-PCR) Neg for Influ A (NEG) Influenza Type A Antigen Neg for Influ A (NEG) Influenza Type B Antigen Neg for Influ B (NEG) Influenza Type B (RT-PCR) Neg for Influ B (NEG) Urine Color YELLOW Urine Appearance CLEAR (CLEAR) Urine pH 6.0 (4.5-7.5) Urine Specific [place] 1.008 (1.000-1.030) Urine Protein NEG (NEG) Urine Glucose (UA) NEG (NEG) Urine Ketones NEG (NEG) Urine Occult Blood 1+ (NEG) Urine Nitrite NEG (NEG) Urine Bilirubin NEG (NEG) Urine Urobilinogen NEG (NEG) Urine Leukocyte Esterase NEG (NEG) Urine WBC (Auto) 1-5 /hpf (0-5) Urine RBC (Auto) 0-4 /hpf (0-4) Urine Hyaline Casts (Auto) 0 /lpf (0-5) Urine Epithelial Cells (Auto) 0-5 /lpf (0-5) Urine Bacteria (Auto) NEG (NEG) Laboratory results per my review. Medications Administered Medications (Trade) Dose Ordered Sig/Yvrose Route Start Time Stop Time Status Last Admin Dose Admin Albuterol/ Ipratropium (Duoneb) 12 ml ONE ONCE INH 10/14/17 16:30 10/14/17 16:31 DC 10/14/17 16:37 12 ML Methylprednisolone Sodium Succinate (Solu-Medrol IV) 125 mg NOW STAT IV 10/14/17 19:17 10/14/17 19:18 DC 10/14/17 19:30 125 MG Amoxicillin/ Clavulanate Potassium (Augmentin 875MG Home Pack) 1 homepack UD ONCE PO 10/14/17 19:30 10/14/17 19:31 DC 10/14/17 19:30 1 HOMEPACK Amoxicillin/ Clavulanate Potassium (Augmentin Tab) 875 mg NOW ONCE PO 10/14/17 19:30 10/14/17 19:31 DC 10/14/17 19:30 875 MG Albuterol/ Ipratropium (Duoneb) 3 ml NOW STAT INH 10/14/17 19:55 10/14/17 19:56 DC 10/14/17 19:58 3 ML ECG Indication: SOB/dyspnea Rate (beats per minute): 98 Rhythm: normal sinus Findings: no ectopy, other (no acute ST segment abnormality) Comparison ECG Date: no prior available ED Course 162: The patient was evaluated in room B2. A complete history and physical examination were performed. 0: Ordered Duoneb 12 ml INH. 1914: I updated the patient on his test results. He is doing better and is resting comfortably. 1916: Ordered Solu-Medrol IV 125 mg IV. 1929: Augmentin Tab 875 mg PO, Augmentin 875 mg home pack 1 homepack PO. 1953: Ordered Duoneb 3 ml .ROUTE. 1954: Ordered Duoneb 3 ml INH. 2022: On reassessment, the patient is comfortable and would like to go home. 2038: Upon reevaluation, the patient is resting comfortably. I discussed the results and treatment plan with him. He verbalized agreement of the treatment plan. The patient was discharged home. Medical Decision Differential diagnosis: Etiologies such as infections, reactive airway disease, pneumonia, pneumothorax , COPD, CHF, cardiac ischemia, pulmonary embolism, musculoskeletal, gastrointestinal, as well as others were entertained. Nursing notes reviewed. Additional history is obtained from the patient's significant other. The patient is a 56-year-old male who presented to the emergency department for an evaluation of shortness of breath and cough. The patient had significant bronchospasm on physical exam. A review of his previous medical history and previous visits does show that he's had this ongoing for quite some time. It appears the patient had an exposure at one time which was work-related and now has problems with bronchospasm ever since. He does follow up to a medical technologist clinical. Currently he is on bronchodilator therapy and he has been on steroids in the past with good relief. The patient was treated with bronchodilator therapy in the emergency department. He was treated with IV fluids as well as IV steroids. He was reevaluated multiple times. I discussed the patient's laboratory and radiographic studies with him. He was not found have signs of infiltrate or pulmonary embolism on radiographic studies. He was encouraged to rest and avoid any strenuous activity. He was also encouraged to call his primary medical technologist clinical on Monday morning to schedule a follow-up appointment. He was also encouraged to return to the emergency department immediately if symptoms change worsen or the need arises. Medication Reconcilliation Current Medication List: was personally reviewed by me Blood Pressure Screening Patient's blood pressure: Normal blood pressure Impression Primary Impression: Acute bronchitis Additional Impression: Shortness of breath Scribe Attestation The scribe's documentation has been prepared under my direction and personally reviewed by me in its entirety. I confirm that the note above accurately reflects all work, treatment, procedures, and medical decision making performed by me. Departure Information Dispostion Home / Self-Care Prescriptions Albuterol Sulfate (ALBUTEROL SULFATE) 1.25 Mg/3 Ml Neb 1 VIAL NEB Q4, #1 BOX Prov: Durga Padron, DO 10/14/17 Amoxicillin & Pot Clavulanate (Augmentin 875-125 mg) 1 Tab Tab 875 MG PO BID, #20 TAB Prov: Durga Padron, DO 10/14/17 Prednisone (Prednisone Tab) 20 Mg Tab 40 MG PO DAILY, #10 TAB Prov: Durga Padron, DO 10/14/17 Referrals Tommy Luis PA-C (PCP) Forms HOME CARE DOCUMENTATION FORM, IMPORTANT VISIT INFORMATION, WORK / SCHOOL INSTRUCTIONS Patient Instructions Bronchitis Acute, My [facility], Sinusitis Acute Additional Instructions Continue all medications as prescribed. Rest and avoid any strenuous activity. Call your medical technologist clinical as soon as possible to schedule follow-up appointment. Return to the emergency department immediately if symptoms change worsen or the need arises. Consider using a nasal steroid such as Flonase to help with the congestion. Problem Qualifiers Primary Impression: Acute bronchitis Bronchitis organism: unspecified organism Qualified Codes: J20.9 - Acute bronchitis, unspecified
[2017-10-14 16:56] LABS: BASO % 0.3 %; BASO ABS # 0.04 K/uL (0-0.2); COMPLETE YES; EOS % 2.6 %; HEMATOCRIT 43.3 % (42-52); IG% 0.4 %; LYMPH % 8.2 %; MEAN CELL VOLUME 89.1 fL (80-100); MEAN CORPUSCULAR HEMOGLOBIN 30.7 pg (25-34); MEAN CORPUSCULAR HGB CONC 34.4 g/dl (32-36); MONO % 8.4 %; NEUT % 80.1 %; PLATELET COUNT 249 K/uL (130-400); RED BLOOD COUNT 4.86 M/uL (4.7-6.1); WHITE BLOOD COUNT 12.13 K/uL (4.8-10.8)
[2017-10-14 17:06] LABS: PROTHROMBIN TIME (PATIENT) 10.8 SECONDS (9.0-12.0)
--- NOTE | 2017-10-14 17:13 | DIAGNOSTIC IMAGING REPORT ---
CHEST ONE VIEW PORTABLE CLINICAL HISTORY: Respiratory distress. Dyspnea. COMPARISON STUDY: Chest CT May 08, 2017. FINDINGS: Lung volumes are normal. No pneumothorax or pleural effusion is present. There is no evidence of pulmonary edema. No consolidation is identified to suggest pneumonia. Cardiomediastinal silhouette is normal. IMPRESSION: No acute cardiopulmonary findings. Electronically signed by: Jeremiah Souza M.D. 10/14/2017 5:12 PM Dictated Date/Time: 10/14/2017 5:10 PM
[2017-10-14 17:16] LABS: ALT/SGPT 32 U/L (12-78); AST/SGOT 28 U/L (15-37); BLOOD UREA NITROGEN 10 mg/dl (7-18); BUN/CREATININE RATIO 8.5 (10-20); CALCIUM 8.4 mg/dl (8.5-10.1); CARBON DIOXIDE 28 mmol/L (21-32); CHLORIDE 107 mmol/L (98-107); CREATININE 1.19 mg/dl (0.60-1.40); GLUCOSE 82 mg/dl (70-99); POTASSIUM 3.6 mmol/L (3.5-5.1); SODIUM 138 mmol/L (136-145)
[2017-10-14 17:20] LABS: ALB/GLOB RATIO 1.1 (0.9-2); ALKALINE PHOSPHATASE 98 U/L (45-117)
[2017-10-14 17:43] LABS: URINE APPEARANCE CLEAR (CLEAR); URINE BILIRUBIN NEG (NEG); URINE COLOR YELLOW; URINE EPITHELIAL CELL AUTO 0-5 /lpf (0-5); URINE NITRITE NEG (NEG); URINE SPECIFIC GRAVITY 1.008 (1.000-1.030); UROBILINOGEN NEG (NEG)
[2017-10-14] MEDS ORDERED: OPTIRAY 320 IV PRN (17:45)
[2017-10-14 17:53] LABS: MANUAL MICROSCOPIC REQUIRED? NO; REVIEW REQ? NO
[2017-10-14 18:03] LABS: INFLUENZA A PCR Neg for Influ A (NEG); INFLUENZA B PCR Neg for Influ B (NEG)
--- NOTE | 2017-10-14 18:22 | DIAGNOSTIC IMAGING REPORT ---
CT ANGIOGRAPHY OF THE CHEST, PULMONARY EMBOLUS PROTOCOL CLINICAL HISTORY: Shortness of breath and cough. COMPARISON STUDY: Chest CT May 08, 2017. TECHNIQUE: Following IV administration of 102 mL of [id number]-320, helical axial images of the chest were obtained utilizing the pulmonary embolus protocol. Maximal intensity projections and sagittal and coronal reformats were viewed on an independent 3D workstation. IV contrast was administered without complication. A dose lowering technique was utilized adhering to the principles of ALARA. CT DOSE: 199.31 mGy.cm FINDINGS: No pulmonary emboli are identified. The size of the heart is normal. There is no thoracic aortic dissection. There has been interval development of mild mediastinal and bilateral hilar lymphadenopathy since CT of May 08, 2017. Similar findings were shown on earlier chest CT of January 05, 2017. Index AP window lymph node measures 1 cm in short axis diameter. Index subcarinal node measures 1.1 cm in short axis diameter. Diffuse bronchial wall thickening is most evident within the lower lobes. Mild mucus is noted within multiple lower lobe bronchi. There is no consolidation to suggest pneumonia. No pneumothorax or pleural effusion is present. There is no cavitation. A few pancreatic parenchymal calcifications are present. IMPRESSION: 1. No pulmonary emboli identified. 2. Diffuse bronchial wall thickening which was shown on an earlier CT of January 05, 2017. No consolidation to suggest pneumonia. 3. Interval development of mild mediastinal and bilateral hilar lymphadenopathy since CT of May 08, 2017. However, similar lymphadenopathy was shown on CT of January 05, 2017 and this lymphadenopathy is likely reactive. Electronically signed by: Jeremiah Souza M.D. 10/14/2017 6:20 PM Dictated Date/Time: 10/14/2017 6:09 PM
[2017-10-14] MEDS ORDERED: METHYLPREDNISOLONE 125 MG VIAL IV STA (19:17)
[2017-10-14] MEDS ORDERED: AMOXICILLIN/CLAVULANATE TAB 875 MG TAB PO ONE (19:30)
[2017-10-14] MEDS ORDERED: AMOXICIL/CLAVU 875MG HOME PACK PO ONE (19:30)
[2017-10-14] MEDS ORDERED: AMOX875T PO (19:39)
[2017-10-14] MEDS ORDERED: PRED20TA2 PO (19:39)
[2017-10-14] MEDS ORDERED: ALBUT/IPRATROP 3MG/0.5MG NEB 3 ML VIAL ONE (19:54)
[2017-10-14] MEDS ORDERED: ALBUT/IPRATROP 3MG/0.5MG NEB 3 ML VIAL INH STA (19:55)
[2017-10-14] MEDS ORDERED: ALBU1.257 NEB (20:24)
[2017-10-14 20:39] VITALS: BP 110/76; PULSE 97; O2SAT 99
== END 2017-10-14 20:41 | disposition home or self-care (01) ==
LOC: C.EDB 15:34
DX: J20.9 Acute bronchitis, unspecified (principal); J45.909 Unspecified asthma, uncomplicated; Z79.52 Long term (current) use of systemic steroids

== ENCOUNTER → 2017-11-10 | Outpatient (CLI) | payer BC ==
[~2017-11-10] MED LIST changes: +ALBINS INH; +ALBU1.257 NEB; +HYDR0.75 PO; +MOME200A INH; +PRED20TA2 PO; +VNTHFA/IN INH
--- NOTE | 2017-11-10 16:10 | DIAGNOSTIC IMAGING REPORT ---
FUSION CT SINUSES W/O CLINICAL HISTORY: J32.9 Chronic sinusitis PATIENT WITH SIGNIFICANT CHRONIC SINUSITIS COMPARISON STUDY: No previous studies for comparison. FINDINGS: A dose reduction technique was utilized according to the principles of ALARA Helical imaging was performed in the axial plane. The study was reviewed in the coronal and sagittal planes. The visualized portions of the intracranial contents are unremarkable. No orbital masses are visualized. The mastoid air cells are symmetrically aerated. The middle ear cavities appear well aerated. There are bilateral maxillary sinus air-fluid levels. There is minimal mucosal disease within the sphenoid and ethmoid sinuses. There is moderate mucosal thickening within the right frontal sinus. There is nasal septal deviation to the left. The ostial portion the right ostiomeatal unit is occluded by soft tissue. The ostial and infundibular portions the left ostiomeatal unit is occluded by soft tissue. There is partial pneumatization right middle turbinate. The ethmoid notches are projected. The left olfactory groove measures 6 mm. The right olfactory groove measures 5 mm. There is a right-sided nasal septal spur. The right frontal ethmoidal recess appears occluded by soft tissue. IMPRESSION: 1. Pansinus disease with bilateral maxillary sinus air-fluid levels, and moderate mucosal thickening within the right frontal sinus. 2. Both ostiomeatal units are occluded. 3. Other findings as described above. Electronically signed by: Gregg Evans M.D. 11/10/2017 4:09 PM Dictated Date/Time: 11/10/2017 4:04 PM
== END | disposition home or self-care (01) ==
LOC: C.CTS 15:51
DX: J32.9 Chronic sinusitis, unspecified (principal); J01.40 Acute pansinusitis, unspecified; J34.89 Other specified disorders of nose and nasal sinuses

== ENCOUNTER 2025-05-09 15:52 | Inpatient (IN) ==
[2025-05-09] MEDS: MoRPHine SULFATE 4 MG/ML 1 ML CARP\\VIAL IV PRN (16:08)
[2025-05-09] MEDS: DIPHTHER/TETAN/PERTUS Vaccine (Tdap, Adol/Adult) 0.5mL IM ONE (16:08)
[2025-05-09] MEDS: ONDANSETRON INJ 2 MG/ML 2 ML VIAL IV STA (16:08)
[2025-05-09 16:18] LABS: Hematocrit (blood only) 37.4 % (42.0-52.0); Hemoglobin 13.1 g/dl (14.0-18.0); Immature Granulocytes # (auto) 0.04 K/uL (0.01-0.20); Immature Granulocytes % (auto) 0.4 %; Mean Corpuscular Hemoglobin 32.0 pg (25.0-34.0); Mean Corpuscular Volume 91.4 fL (80.0-100.0); Platelet Count 264 K/uL (130-400); RDW Standard Deviation 45.4 fL (36.4-46.3); Red Blood Count 4.09 M/uL (4.70-6.10); White Blood Count 9.00 K/ul (4.8-10.8)
--- NOTE | 2025-05-09 16:27 | Emergency Department Note ---
Impression & Plan Laceration of right thigh, Contact with powered saw as cause of accidental injury ED Provider Note NAME: HUNTER GARDNER AGE: 64 SEX: Male INFORMANT: Patient, EMS ED PROVIDER(S): Ross Petty MD CHIEF COMPLAINT: Leg injury PLAN: Disposition: Admitted Outpatient prescription management: none Referral: None MEDICAL DECISION MAKING: Patient presented because of right leg injury. He was evaluated immediately upon arrival. Did provide prehospital medical command and discussed with EMS on their arrival. Patient was assessed and had a large laceration to the lateral, distal right thigh. Patient had tetanus updated. He was given IV morphine for pain control. IV Ancef was administered. X-ray was performed and revealed no evidence of fracture or radiopaque foreign body. Wound was examined under anesthesia. See note below. Patient had a significant injury with transection of the vastus lateralis. IT band was exposed but not obviously injured. Wound entrance was within 4 cm of patella. Patient does have the ability to hold the leg in extension. Wound does enter at an oblique angle and goes superiorly about 5 cm in depth. No obvious bone exposure. Patient tolerated local anesthetic and exploration well. I did remove numerous pieces of foreign material. Consultation was made with orthopedics, Dr. Wu. Wound was described and situation reviewed. Given the proximity to the knee joint he was very concerned and asked for the patient to be admitted and he would formally evaluate and perform a washout. He did ask for expanded antibiotic coverage and for the wound to be closed at the level of the skin loosely. This was performed as noted below and patient tolerated well. Discussed with ED pharmacist and patient was given a dose of IV Rocephin as well as daptomycin. Consultation was made with the [facility] hospitalist service. Case was discussed and diagnostics were reviewed. Patient was evaluated in the ER and admitted for further management. Care/management discussed with: corporate tax manager, ED pharmacist, orthopedics, hospitalist Level of care consideration(s): After review of the information above and other included data, I feel the patient requires escalation of care to admission Triage Nursing notes: reviewed and agree them. Vital Signs: reviewed and remarkable for no significant abnormalities Additional History obtained from: none Chronic Medical/Social Conditions affecting care: none Prior/ Outside/ External records reviewed: none Differential Diagnosis: Foreign body, fracture, dislocation, joint compromise, infection, soft tissue injury, tendon injury, vascular compromise, compartment syndrome, as well as other pathologies. Diagnostics, independently interpreted by me: ECG: none Cardiac Monitoring: Cardiac monitoring ordered by me: The patient was placed on continuous cardiac monitoring and observed. It revealed a normal sinus rhythm at 73 beats per minute without ectopy or evidence of dysrhythmia. Medical decision rules: none Imaging studies: X-ray imaging of the right knee reveals no evidence of fracture or radiopaque foreign body. HPI: 64 year old Male arrives for evaluation of right leg injury. This started less than an hour prior to arrival and is from a circular saw injury. Patient was trying to cut a stump in the saw kicked back. The patient also notes the following associated symptoms, right leg pain. Bleeding was controlled with pressure. The patient has received fentanyl prehospital for relieving factors. Current pain is rated as 9/10. Patient notes tetanus is not up-to-date. Denies any other trauma. Pt denies LOC, headache, visual changes, neck pain, chest pain, breathing difficulties, nausea, vomiting, abdominal pain, back pain, other extremity pain, numbness, weakness, or other complaints. PAST MEDICAL HISTORY: See Below, malignant hyperthermia PAST SURGICAL HISTORY: See Below, SOCIAL HISTORY: See Below, HOME MEDICATIONS: See Below ALLERGIES: See Below VITALS: See Below PHYSICAL EXAMINATION: GENERAL: Awake, alert, uncomfortable-appearing, in no distress HENT: Normocephalic, atraumatic. Oropharynx unremarkable. EYES: Normal conjunctiva. Sclera non-icteric. NECK: Inspection normal. Non-tender. Supple. No nuchal rigidity. FROM. No masses. RESPIRATORY: Clear to auscultation. No wheezes. No rales. Normal respiratory effort. CARDIAC: Normal rate. Normal rhythm. Extremities warm and well perfused. Pulses equal. No JVD. GI: Soft, non-distended. No tenderness to palpation. No rebound or guarding. No masses. MUSCULOSKELETAL: Both upper and left lower extremities are atraumatic. There is a large laceration to the right distal lateral thigh proximal to the knee joint. Patient does have normal quadricep function with the ability to hold the leg in full extension. Excellent DP and PT pulse. NEURO: Normal sensorium. No sensory or motor deficits noted. SKIN: No rash or jaundice noted. PROCEDURES: LACERATION REPAIR: Location: Right distal thigh Total length: 9 cm Complexity: Complex due to tendon and muscle injury Verbal consent was obtained after the risks and benefits were explained, including but not limited to bleeding, scarring, infection, pain, and bone/joint/nerve damage. At this time, the risks of the procedure are less than the risks of NOT performing the procedure. A time out was taken and the correct patient and site identified. The skin was prepped with betadine. The wound was anesthetized with 5 ml of 1% lidocaine with epinephrine. Copious irrigation was performed using saline. The skin was prepped again with betadine and a sterile field set. The wound was explored for foreign bodies and multiple small pieces of dirt like material removed. Debridement was not performed. After review with orthopedics the wound edges were loosely approximated using 7, 4-0 simple interrupted nylon sutures. Hemostasis and approximation was achieved. Kalyan wrap and a sterile dressing applied. Detailed wound care instructions and signs and symptoms of infection reviewed with the patient/family. No complications and the patient tolerated the procedure well. CRITICAL CARE: none OBSERVATION NOTE: none Past Med/Surg History Problem List (Updated 05/09/25 @ 16:27 by Ross Petty MD) Contact with powered saw as cause of accidental injury (Acute) Laceration of right thigh (Acute) S/P arthroscopy of shoulder Right shoulder pain Encounter for pre-operative examination Myofascial pain Cervical spondylosis Paresthesia of right upper extremity Cervical radiculopathy Scapular dysfunction Calcium kidney stone Abnormal finding on lung imaging (Acute) Acute asthma exacerbation (Acute) Arthritis (Acute) Chronic cough (Acute) Chronic sinusitis (Acute) Keratoderma, acquired (Acute) Sciatica, right side (Acute) Sinusitis (Acute) Reactive airway disease with acute exacerbation (Acute) Pulmonary nodule (Acute) Left flank pain (Acute) Unspecified sinusitis (chronic) Rotator cuff tear, right Diverticulosis (Acute) Kidney stones Hx Medical History History of anesthesia reaction Generalized headaches Shoulder pain Lumbar herniated disc History of COVID-19 Osteoarthritis Restrictive airway disease Surgical History History of lithotripsy H/O metal removed from eye Hx of cystoscopy Family history of malignant hyperthermia Family History Father Heart disease Nephrolithiasis Mother Diabetes Hypertension Nephrolithiasis Cancer Social History Smoking Status: Never smoker Second Hand Exposure: No; Do You Dip or Chew Tobacco: Yes (advised npo status); Hx Alcohol Use: No Hx Substance Use: No Preferred Language: [place] Communication Ability: Effective Commercial Shrimping Captain Required: No Beliefs That Will Affect Care: None marital status: Current Living Situation: Spouse current occupational status: unemployed current occupation: ran heavy equipment, 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 Feels Safe at Home: Yes Assistive Devices: Contacts and Glasses Allergies Allergies Allergy/AdvReac Type Severity Reaction Status Date / Time No Known Allergies Allergy Verified 05/09/25 17:14 Home Meds Home Medications Medication Instructions Recorded Confirmed cholecalciferol (vitamin D3) 25 25 mcg PO DAILY 11/27/19 05/09/25 mcg (1,000 unit) capsule lorazepam 0.5 mg tablet 0.25 mg PO BID PRN Anxiety 04/12/23 05/09/25 cyclobenzaprine 10 mg tablet 10 mg PO BID PRN MUSCLE SPASMS 06/11/24 05/09/25 acetaminophen 500 mg tablet 500 mg PO Q6H PRN Pain 05/09/25 05/09/25 (Tylenol Extra Strength) ibuprofen 200 mg tablet (Advil) 200 mg PO Q6H PRN Pain 05/09/25 05/09/25 Results & Data (ED) Vital Signs Vital Signs - 24 hr 05/09/25 15:58 05/09/25 17:21 Temperature 36.6 C Temperature Source Oral Pulse Rate 99 H Pulse Rate [Finger] 73 Respiratory Rate 22 18 Respiratory Effort / Characteristics Non-Labored Spontaneous Non-Labored Spontaneous Respiratory Depth Normal Normal Respiratory Pattern Regular Blood Pressure 129/92 Blood Pressure [Right Arm] 117/84 Blood Pressure Mean 104 Blood Pressure Mean [Right Arm] 95 Pulse Oximetry 95 98 Oxygen Delivery Method Room Air Room Air Sepsis Recent Fever Within 48 Hours No Sepsis New/Unexplained Change in Mental Status No Sepsis Action Taken by Nursing No Action Required Laboratory Data 05/09/25 16:05 Lab Results 05/09/25 Range/Units 16:05 WBC 9.00 (4.8-10.8) K/ul RBC 4.09 L (4.70-6.10) M/uL Hgb 13.1 L (14.0-18.0) g/dl Hct 37.4 L (42.0-52.0) % MCV 91.4 (80.0-100.0) fL MCH 32.0 (25.0-34.0) pg MCHC 35.0 (32.0-36.0) g/dL RDW Std Deviation 45.4 (36.4-46.3) fL RDW Coeff of Cadence 13.4 (11.5-14.5) % Plt Count 264 (130-400) K/uL MPV 9.1 L (9.4-12.4) fL Immature Gran % (Auto) 0.4 % Neut % (Auto) 73.4 % Lymph % (Auto) 17.2 % [place] % (Auto) 8.6 % Eos % (Auto) 0.2 % Baso % (Auto) 0.2 % Neut # (Auto) 6.60 H (1.40-6.50) K/uL Lymph # (Auto) 1.55 (1.20-3.40) K/uL [place] # (Auto) 0.77 H (0.11-0.59) K/uL Eos # (Auto) 0.02 (0.00-0.50) K/uL Baso # (Auto) 0.02 (0.00-0.20) K/uL Immature Gran # (Auto) 0.04 (0.01-0.20) K/uL Administered Medications Morphine Sulfate (Morphine Sulfate 4 Mg/Ml 1 Ml Carp\\Vial) 4 mg IV Q15M PRN PRN Reason: Pain Stop: 05/23/25 16:00 Last Admin: 05/09/25 16:08 Dose: 4 mg Documented By: DEMARIO Discontinued Medications Diphtheria/Pertussis/Tetanus Vacc (Diphther/Tetan/Pertus Vaccine (Tdap, Adol/Adult) 0.5ml) 0.5 ml IM .ONCE ONE Stop: 05/09/25 16:02 Last Admin: 05/09/25 16:08 Dose: 0.5 ml Documented By: DEMARIO Cefazolin Sodium (Ancef 2000mg) 2,000 mg in 15 mls @ 3.75 mls/min IV NOW STA Stop: 05/09/25 16:25 Last Admin: 05/09/25 16:28 Dose: 3.75 mls/min Documented By: DEMARIO Daptomycin 375 mg/ Syringe 7.5 mls @ 3.75 mls/min IV NOW ONE; Protocol Stop: 05/09/25 17:31 Last Admin: 05/09/25 17:50 Dose: 3.75 mls/min Documented By: DEMARIO Ceftriaxone Sodium (Rocephin) 2,000 mg in 50 mls @ 100 mls/hr IV NOW STA Stop: 05/09/25 17:49 Last Infusion: 05/09/25 18:08 Dose: Infused Documented By: Admin: 05/09/25 17:33 Dose: 100 mls/hr Documented By: DEMARIO Lidocaine/Epinephrine (Lidocaine 1%/Epinephrine 1:100,000 50 Ml Vial) 5 ml INFIL NOW ONE Stop: 05/09/25 16:02 Last Admin: 05/09/25 16:32 Dose: 5 ml Documented By: DEMARIO Ondansetron HCl (Ondansetron Inj 2 Mg/Ml 2 Ml Vial) 4 mg IV NOW STA Stop: 05/09/25 16:02 Last Admin: 05/09/25 16:08 Dose: 4 mg Documented By: DEMARIO Imaging Data Radiologist's Impression: Knee X-Ray 05/09/25 16:17 Clinical History: Injury 2 views of the right knee are submitted for review. Findings: No fracture or dislocation is seen. No significant arthritic changes are noted. No other osseous abnormality is identified. There are no radiopaque foreign bodies. There is a soft tissue injury of the lateral aspect of the distal right thigh Impression: Soft tissue injury without definite fracture or foreign body Electronically signed by Adrián Henning 05-09-2025 4:57 PM Discharge Plan Visit Data Chief Complaint: Leg Injury/Pain Stated Complaint: LEG LAC ED Provider: Ross Petty Discharge Problem: Laceration of right thigh, Contact with powered saw as cause of accidental injury Patient Disposition: Admitted As Inpatient Condition: Good Forms Stand Alone Forms: [facility] [employer] Prescriptions Prescriptions: No Action lorazepam 0.5 mg tablet 0.25 mg PO BID PRN (Reason: Anxiety) cyclobenzaprine 10 mg tablet 10 mg PO BID PRN (Reason: MUSCLE SPASMS) cholecalciferol (vitamin D3) 25 mcg (1,000 unit) capsule 25 mcg PO DAILY acetaminophen [Tylenol Extra Strength] 500 mg Tablet 500 mg PO Q6H PRN (Reason: Pain) Rx Instructions: PER PT "USUALLY TAKE WITH ONE ADVIL, TOGETHER". ibuprofen [Advil] 200 mg Tablet 200 mg PO Q6H PRN (Reason: Pain) Rx Instructions: PER PT "USUALLY TAKE WITH ONE TYLENOL, TOGETHER". Referrals Referrals: Tommy Luis [Primary Care Provider] -
[2025-05-09] MEDS: LIDOCAINE 1%/EPINEPHRINE 1:100,000 50 ML VIAL INFIL ONE (16:32)
--- NOTE | 2025-05-09 16:58 | XRay Report ---
Clinical History: Injury 2 views of the right knee are submitted for review. Findings: No fracture or dislocation is seen. No significant arthritic changes are noted. No other osseous abnormality is identified. There are no radiopaque foreign bodies. There is a soft tissue injury of the lateral aspect of the distal right thigh Impression: Soft tissue injury without definite fracture or foreign body Electronically signed by Adrián Henning 05-09-2025 4:57 PM
[2025-05-09] MEDS: cefTRIAXone SODIUM 2,000 MG/50 ML BAG IV STA (17:33)
[2025-05-09] MEDS: DAPTOmycin 375 MG in SYRINGE 0 ML IV ONE (17:50)
[2025-05-09] MEDS ORDERED: VANCOMYCIN CONSULT ACTIVE PRN (20:29)
--- NOTE | 2025-05-09 20:40 | History & Physical Report ---
Date of Service May 09, 2025 Assessment & Plan (1) Contact with powered saw as cause of accidental injury: Plan: As above in the History of Present Illness. Hold OFF heparin 5000 units SQ q8 or heparin 5000 units SQ q12 for pharmacologic DVT prophylaxis as the risk of uncontrolled bleeding from right [id number] wound outweighs any benefit conferred upon patient were he to receive either heparin 5000 units SQ q8 or heparin 5000 units SQ q12 for pharmacologic DVT prophylaxis on admission date 05/09/2025. Admission and Anticipated Discharge Date Admission Date: May 09, 2025 History of Present Illness Chief Complaint: "I was outside cutting a tree stump using my circular saw for about 1 hour today (05/09/2025, 2:00pm - 3:00pm), and then all of a sudden, the saw kicked back and dug into my right leg, just above the right knee, and it started to bleed bad, so I pressed on it with my hand and I hollered to my to bring me a towel and we wrapped it around the wound and I kept pressing on it with my hands while my called the ambulance and brought me to [facility] ER. I feel ok now. No pain at all. The wound is wrapped up with this BELA bandage. The ER doctor said that tomorrow morning (05/10/2025 am) an Orthopedic Surgeon Dr. Izaiah Eubanks will come by and washout my right above the knee wound, but I would like to see my own orthopedic surgeon Dr. Sohan Orozco as he repaired my right shoulder rotator cuff repair last year (03/14/2024, 12:25pm) and Dr. Orozco was excellent, so if I can keep the same orthopedic surgeon to look at my right leg wound tomorrow, that would be great. No offense to Dr. Eubanks at all; I just know Dr. 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 I feel ok now. No pain at all. The wound is wrapped up with this BELA bandage. The ER doctor said that tomorrow morning (05/10/2025 am) an Orthopedic Surgeon Dr. Izaiah Eubanks will come by and washout my right above the knee wound, but I would like to see my own orthopedic surgeon Dr. Sohan Orozco as he repaired my right shoulder rotator cuff repair last year (03/14/2024, 12:25pm) and Dr. Orozco was excellent, so if I can keep the same orthopedic surgeon to look at my right leg wound tomorrow, that would be great. No offense to Dr. Eubanks at all; I just know Dr. Orozco from last year." Patient denies antecedent/coincident fevers, chills, diaphoresis, shortness of breath, cough, wheeze, sore throat, hemoptysis, chest pains, palpitations, pleurisy, nausea, vomiting, diarrhea, abdominal pain, pelvic pain, hematemesis, hematochezia, melena, hematuria, dysuria, frequency, urgency, headaches, dizziness, lightheadedness, visual changes, hearing changes, weakness, falls, syncope, trauma, travel history, sick contacts, or food/drug ingestions novel or new. All other review of systems are reported as negative by the patient on admission date 05/09/2025. In [facility] ER bed #B12B, patient was afebrile @ 36.6 degrees Celsius, HR 99, RR 22, O2 sat 95% on room air, and BP 129/92 ( 025, 3:58pm). Exam was noted for a linear wound 9 cm long and 5 cm deep proximal to the right knee and cutting into the lateral head of the right quadriceps tendon proximal to its insertion into the right patella. Hemostasis was achieved by manual pressure. No surrounding erythema, edema, induration, warmth, tenderness, crepitus, fluctuance, discharge (sanguineous, serous, suppurative), malodor, ulceration, or lymphangitic streaking was noted at this linear wound. Labs in [facility] ER bed #B12B included: WBC 9.00, N73 L17 M9, Hb 13.1, MCV 91.4, MCHC 35.0, platelet 264 (05/09/2025, 4:05pm). INR (05/09/2025, 8:30pm)(sofia-procedural evaluation). Additional testing in [facility] ER bed #B12B included: Right knee x-ray, 2 views (05/09/2025, 4:17pm): soft tissue injury without definite fracture or foreign body EKG (05/09/2025, 8:30pm)(sofia-procedural evaluation). Patient was subsequently admitted to the inpatient hospitalist service @ [facility] on 05/09/2025 with the following diagnosis: 1. Acute right [id number] circular saw wound. To address #1, patient's wound was irrigated with 0.9% NS and then wrapped with gauze and BELA bandage. Patient also received cefazolin 2g IV x 1 dose (05/09/2025, 4:28pm), daptomycin 375mg IV x 1 dose (05/09/2025, 5:50pm), ceftriaxone 2g IV x 1 dose (05/09/2025, 5:50pm) in [facility] ER bed #B12B. Patient will continue with empiric vancomycin 1g IV q12 (05/09/2025, 9:00pm) and ceftriaxone 2g IV daily (05/10/2025, 9:00am) as patient awaits formal Orthopedic Surgery Service evaluation with Dr. Sohan Orozco in the 05/10/2025 am with anticipated washout. Allergies Allergy/AdvReac Type Severity Reaction Status Date / Time No Known Allergies Allergy Verified 05/09/25 17:14 Home Medications Medication Instructions Recorded Confirmed Type cholecalciferol (vitamin D3) 25 25 mcg PO DAILY 11/27/19 05/09/25 History mcg (1,000 unit) capsule lorazepam 0.5 mg tablet 0.25 mg PO BID PRN Anxiety 04/12/23 05/09/25 History cyclobenzaprine 10 mg tablet 10 mg PO BID PRN MUSCLE SPASMS 06/11/24 05/09/25 History acetaminophen 500 mg tablet 500 mg PO Q6H PRN Pain 05/09/25 05/09/25 History (Tylenol Extra Strength) ibuprofen 200 mg tablet (Advil) 200 mg PO Q6H PRN Pain 05/09/25 05/09/25 History Past Med/Surg History Problem List Contact with powered saw as cause of accidental injury (Acute) Laceration of right thigh (Acute) S/P arthroscopy of shoulder Right shoulder pain Encounter for pre-operative examination Myofascial pain Cervical spondylosis Paresthesia of right upper extremity Cervical radiculopathy Scapular dysfunction Calcium kidney stone Abnormal finding on lung imaging (Acute) Acute asthma exacerbation (Acute) Arthritis (Acute) Chronic cough (Acute) Chronic sinusitis (Acute) Keratoderma, acquired (Acute) Sciatica, right side (Acute) Sinusitis (Acute) Reactive airway disease with acute exacerbation (Acute) Pulmonary nodule (Acute) Left flank pain (Acute) Unspecified sinusitis (chronic) Rotator cuff tear, right Diverticulosis (Acute) Kidney stones Hx Medical History History of anesthesia reaction pts states that after anesthesia pt experiences increased irritability and hyperactivity for approx 1-2 weeks following Generalized headaches Shoulder pain Right side, "pinched nerve" Lumbar herniated disc History of COVID-19 11/2021, resolved Osteoarthritis Restrictive airway disease No inhaler need "for a long time" Surgical History History of lithotripsy H/O metal removed from eye Hx of cystoscopy + stone basketing Family history of malignant hyperthermia Cousin on father side was diagnosed/tested. No personal issues with surgery/anesthesia per patient. Patient has not had formal MH testing. MH precautions used in past per [place] records. Family History Father Heart disease Nephrolithiasis Mother , at 80 years of age from BRCA; on 43 pills at the time of her . 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 Physical Exam Constitutional: General: Comfortable, cooperative, coherent. Wide awake and alert. Not confused, lethargic, or obtunded. Patient speaks in complete, fluent, and articulate sentences without pause, interruption, cough, or wheeze. HEENT: Normocephalic, atraumatic. Pupils equally round and reactive to light. No nystagmus, gaze paresis, anisocoria, miosis, mydriasis, hyphema, scleral injection, conjunctivitis, or pterygium. No otorrhea. No pharyngeal erythema, edema, or discharge. Neck: Supple, no stridor, bruit, goiter, or hepato-jugular reflux. Jugular venous pressure is estimated to be 3 cm above the sternal angle of Ross, which in turn, is 5 cm above the level of the right atrium; with jugul ar venous pressure estimated to be 8 cm, then, there is no jugular venous distention on 05/09/2025. Lymphatics: No cervical (anterior/posterior), supraclavicular, infraclavicular, axillary, epitrochlear, or inguinal adenopathy. Chest: Symmetric rise and fall with respirations. Non-tender to palpation. Lungs: Clear to auscultation and percussion. No audible exp iratory wheeze, egophony, pectoriloquy, increase in tactile fremitus, or flatness/dullness to percussion at the bases. Heart: RRR. S1 and S2 noted. No S3 or S4 summation gallop. No tripartite friction rub. Grade II/ early systolic murmur @ LLSB without radiation to the carotids, axilla, or back, and which remains invariant in regards to the respiratory cycle. Abdomen: Soft, non-tender, non-distended. No rebound, guarding, Zaman's sign, or organomegaly. Bowel sounds auscultated in all 4 quadrants. Extremities: No clubbing, cyanosis, or edema in upper extremities or lower extremities bilaterally. 2+ pedal pulses bilaterally. Skin: No decubitus ulcer, exanthem, or enanthem. Linear wound 9 cm long and 5 cm deep proximal to the right knee and cutting into the lateral head of the right quadriceps tendon proximal to its insertion into the right patella. Hemostasis was achieved by manual pressure. No surrounding erythema, edema, induration, warmth, tenderness, crepitus, fluctuance, discharge (sanguineous, serous, suppurative), malodor, ulceration, or lymphangitic streaking is noted at this linear wound. Genito-urinary: No urethral discharge. No moreno catheter. Neurology: Alert and oriented in regards to person, place, time, and situation. DTR+. 5/5 motor strength in all 4 extremities, both proximally and distally. No myoclonus, tremors, or tics. Psychiatry: No homicidal ideation. No suicidal ideation. No flat affect; smiles appropriately. Results & Data Results & Data Vital Signs (Past 12 Hours) Vital Signs Temp Pulse Pulse Resp BP BP Pulse Ox 05/09/25 20:15 36.6 C 83 18 133/82 96 05/09/25 19:38 79 20 113/78 97 05/09/25 19:00 79 20 113/78 97 05/09/25 17:21 73 18 117/84 98 05/09/25 15:58 36.6 C 99 H 22 129/92 95 O2 Del Method 05/09/25 20:15 Room Air 05/09/25 19:38 Room Air 05/09/25 19:00 Room Air 05/09/25 17:21 Room Air 05/09/25 15:58 Room Air Laboratory Results As above in the History of Present Illness. Diagnostic Findings As above in the History of Present Illness. Medications Administered As above in the History of Present Illness. Code Status & VTE Plan VTE Prophylaxis Plan VTE Prophylaxis will be ordered: Yes PG Care Time/CCT Total # of Minutes Spent Total Time Spent with Patient: Total time spent is greater than 50% in coordination of care (as documented) at patient's floor/unit and/or counseling patient: Coding Level of Care Code 77772 INT INP/OBS CARE 2/55MIN Diagnoses Contact with powered saw as cause of accidental injury W31.2XXA
[2025-05-09] MEDS ORDERED: HEPARIN SOD 5,000 UNIT/0.5 ML VIAL SQ SCH (21:00)
[2025-05-09 21:26] LABS: Alanine Aminotransferase 24.0 U/L (7-52); Albumin Globulin Ratio 1.3 (0.9-2); Alkaline Phosphatase 49.0 U/L (34-104); Anion Gap 7.0 (3-11); Bilirubin,Total 0.5 mg/dl (0.2-1.0); Blood Urea Nitrogen 15.0 mg/dl (6-23); Calcium 8.4 mg/dl (8.6-10.3); Carbon Dioxide 27.0 mmol/L (21-32); Chloride 105.0 mmol/L (98-107); Creatinine Clr Calc Pharmacy 53.9 ml/min; Globulin 2.9 gm/dl (2.5-4.0); Glucose 104.0 mg/dl (70-99(Fasting)); Potassium 4.0 mmol/L (3.5-5.1); Sodium 139.0 mmol/L (136-145); Total Protein 6.7 gm/dl (6.0-8.3)
[2025-05-09 21:46] LABS: INR 1.0 (0.9-1.1); Prothrombin Time 10.9 Seconds (9.0-12.0)
[2025-05-09] MEDS: MoRPHine SULFATE 2 MG/ML CARP IV PRN (22:41)
[2025-05-10] MEDS: MoRPHine SULFATE 2 MG/ML CARP IV STA (00:20)
[2025-05-10] MEDS: LORazepam 0.5 MG TAB PO PRN (00:23)
[2025-05-10] MEDS: VANCOMYCIN HCL 1,250 MG in SODIUM CHLORIDE 0.9% 250 ML IV ONE (06:03)
[2025-05-10 07:08] LABS: Hematocrit (blood only) 38.6 % (42.0-52.0); Hemoglobin 13.0 g/dl (14.0-18.0); Immature Granulocytes # (auto) 0.06 K/uL (0.01-0.20); Immature Granulocytes % (auto) 0.5 %; Mean Corpuscular Hemoglobin 31.0 pg (25.0-34.0); Mean Corpuscular Volume 92.1 fL (80.0-100.0); Platelet Count 269 K/uL (130-400); RDW Standard Deviation 46.7 fL (36.4-46.3); Red Blood Count 4.19 M/uL (4.70-6.10); White Blood Count 11.47 K/ul (4.8-10.8)
[2025-05-10 07:36] LABS: Anion Gap 5.0 (3-11); Blood Urea Nitrogen 16.0 mg/dl (6-23); Calcium 8.4 mg/dl (8.6-10.3); Carbon Dioxide 28.0 mmol/L (21-32); Chloride 106.0 mmol/L (98-107); Creatinine Clr Calc Pharmacy 50.6 ml/min; Glucose 90.0 mg/dl (70-99(Fasting)); Potassium 4.0 mmol/L (3.5-5.1); Sodium 139.0 mmol/L (136-145)
[2025-05-10] MEDS: ACETAMINOPHEN 325 MG TAB PO PRN (07:46)
[2025-05-10] MEDS: cefTRIAXone SODIUM 2,000 MG/50 ML BAG IV SCH (07:47)
--- NOTE | 2025-05-10 08:49 | Anesthesiology Consultation ---
Date of Service May 10, 2025 Assessment & Plan ASA ASA2 Proposed Anesthesia Anesthesia Type: General Additional Comments: tiva for mh in cousin History Surgery Operation Date: 05/10/25 12:00 Proposed Procedures p Incision and Drainage Extremity(Right) - Izaiah Eubanks MD Height/Weight Height: 5 ft 6 in Weight: 55.6 kg Allergies Allergy/AdvReac Type Severity Reaction Status Date / Time No Known Allergies Allergy Verified 05/09/25 17:14 Medications Home Medications Medication Instructions Recorded Confirmed Last Taken cholecalciferol (vitamin D3) 25 25 mcg PO DAILY 11/27/19 05/09/25 05/09/25 mcg (1,000 unit) capsule lorazepam 0.5 mg tablet 0.25 mg PO BID PRN Anxiety 04/12/23 05/09/25 02/13/24 cyclobenzaprine 10 mg tablet 10 mg PO BID PRN MUSCLE SPASMS 06/11/24 05/09/25 Unknown acetaminophen 500 mg tablet 500 mg PO Q6H PRN Pain 05/09/25 05/09/25 Unknown (Tylenol Extra Strength) ibuprofen 200 mg tablet (Advil) 200 mg PO Q6H PRN Pain 05/09/25 05/09/25 Unknown Active Medications Generic Name Dose Route Start Last Admin Trade Name Freq PRN Reason Stop Dose Admin Acetaminophen 650 mg 05/09/25 18:01 05/10/25 07:46 Acetaminophen 325 Mg Tab PO 06/08/25 18:00 650 mg Q6 PRN Administration pain 1-3;headache;T>100.4F Lorazepam 0.25 mg 05/09/25 18:05 05/10/25 00:23 Lorazepam 0.5 Mg Tab PO 06/08/25 18:04 0.25 mg BID PRN Administration Anxiety Morphine Sulfate 1 mg 05/09/25 18:01 05/10/25 03:57 Morphine Sulfate 2 Mg/Ml Carp IV 05/23/25 18:00 1 mg Q2H PRN Administration Pain 4 to 10 Past Medical History Medical History History of anesthesia reaction pts states that after anesthesia pt experiences increased irritability and hyperactivity for approx 1-2 weeks following Generalized headaches Shoulder pain Right side, "pinched nerve" Lumbar herniated disc History of COVID-19 11/2021, resolved Osteoarthritis Restrictive airway disease No inhaler need "for a long time" Past Family History Family History Father Heart disease Nephrolithiasis Mother , at 80 years of age from BRCA; on 43 pills at the time of her . Diabetes Hypertension Nephrolithiasis Cancer Past Surgical History Surgical History History of lithotripsy H/O metal removed from eye Hx of cystoscopy + stone basketing Family history of malignant hyperthermia Cousin on father side was diagnosed/tested. No personal issues with surgery/anesthesia per patient. Patient has not had formal MH testing. MH precautions used in past per [place] records. Social History Smoking Status: Never smoker tobacco type: smokeless tobacco Do You Dip or Chew Tobacco: Yes Hx Alcohol Use: No Hx Substance Use: No substance use type: does not use Physical Exam Vital Signs Last Vital Signs Temp 37.1 C 05/10/25 07:34 Pulse 85 05/10/25 07:34 Resp 16 05/10/25 07:34 BP 123/61 05/10/25 07:34 Pulse Ox 96 05/10/25 07:34 O2 Del Method Room Air 05/10/25 07:34 Testing Laboratory Results 05/10/25 06:31 05/10/25 06:31 PT 10.9 Seconds (9.0-12.0) 05/09/25 20:58 INR 1.0 (0.9-1.1) 05/09/25 20:58
[2025-05-10] MEDS ORDERED: PROPOFOL IV EMULSION 10 MG/ML 20 ML VIAL IV ONE (09:09)
[2025-05-10] MEDS ORDERED: ONDANSETRON INJ 2 MG/ML 2 ML VIAL ONE (09:09)
[2025-05-10] MEDS ORDERED: ROCURONIUM BROMIDE 10 MG/ML 5 ML VIAL IV ONE (09:09)
[2025-05-10] MEDS ORDERED: SUGAMMADEX SODIUM 200 MG/2 ML VIAL IV ONE (09:10)
[2025-05-10] MEDS ORDERED: PROPOFOL IV EMULSION 10 MG/ML 100 ML VIAL IV ONE (10:17)
[2025-05-10] MEDS ORDERED: 4.5GM X1 IV ONE (11:30)
--- NOTE | 2025-05-10 12:01 | Anesthesiology Consultation ---
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 History Surgery Operation Date: 05/10/25 12:00 Proposed Procedures p Incision and Drainage Extremity(Right) - Izaiah Eubanks MD Height/Weight Height: 5 ft 6 in Weight: 55.6 kg Allergies Allergy/AdvReac Type Severity Reaction Status Date / Time No Known Allergies Allergy Verified 05/09/25 17:14 Medications Home Medications Medication Instructions Recorded Confirmed Last Taken cholecalciferol (vitamin D3) 25 25 mcg PO DAILY 11/27/19 05/09/25 05/09/25 mcg (1,000 unit) capsule lorazepam 0.5 mg tablet 0.25 mg PO BID PRN Anxiety 04/12/23 05/09/25 02/13/24 cyclobenzaprine 10 mg tablet 10 mg PO BID PRN MUSCLE SPASMS 06/11/24 05/09/25 Unknown acetaminophen 500 mg tablet 500 mg PO Q6H PRN Pain 05/09/25 05/09/25 Unknown (Tylenol Extra Strength) ibuprofen 200 mg tablet (Advil) 200 mg PO Q6H PRN Pain 05/09/25 05/09/25 Unknown Active Medications Generic Name Dose Route Start Last Admin Trade Name Freq PRN Reason Stop Dose Admin Acetaminophen 650 mg 05/09/25 18:01 05/10/25 07:46 Acetaminophen 325 Mg Tab PO 06/08/25 18:00 650 mg Q6 PRN Administration pain 1-3;headache;T>100.4F Lorazepam 0.25 mg 05/09/25 18:05 05/10/25 00:23 Lorazepam 0.5 Mg Tab PO 06/08/25 18:04 0.25 mg BID PRN Administration Anxiety Morphine Sulfate 1 mg 05/09/25 18:01 05/10/25 03:57 Morphine Sulfate 2 Mg/Ml Carp IV 05/23/25 18:00 1 mg Q2H PRN Administration Pain 4 to 10 Past Medical History Medical History History of anesthesia reaction pts states that after anesthesia pt experiences increased irritability and hyperactivity for approx 1-2 weeks following Generalized headaches Shoulder pain Right side, "pinched nerve" Lumbar herniated disc History of COVID-19 11/2021, resolved Osteoarthritis Restrictive airway disease No inhaler need "for a long time" Past Family History Family History Father Heart disease Nephrolithiasis Mother , at 80 years of age from BRCA; on 43 pills at the time of her . Diabetes Hypertension Nephrolithiasis Cancer Past Surgical History Surgical History History of lithotripsy H/O metal removed from eye Hx of cystoscopy + stone basketing Family history of malignant hyperthermia Cousin on father side was diagnosed/tested. No personal issues with surgery/anesthesia per patient. Patient has not had formal MH testing. MH precautions used in past per [place] records. Social History Smoking Status: Never smoker tobacco type: smokeless tobacco Do You Dip or Chew Tobacco: Yes Hx Alcohol Use: No Hx Substance Use: No substance use type: does not use Physical Exam Vital Signs Last Vital Signs Temp 37.1 C 05/10/25 07:34 Pulse 85 05/10/25 07:34 Resp 16 05/10/25 07:34 BP 123/61 05/10/25 07:34 Pulse Ox 96 05/10/25 07:34 O2 Del Method Room Air 05/10/25 07:34 Testing Laboratory Results 05/10/25 06:31 05/10/25 06:31 PT 10.9 Seconds (9.0-12.0) 05/09/25 20:58 INR 1.0 (0.9-1.1) 05/09/25 20:58
--- NOTE | 2025-05-10 12:03 | Orthopedic Consultation ---
Date of Consultation May 10, 2025 Assessment & Plan (1) Laceration of right knee: Discussed with the patient that this saw injury in all likelihood penetrated his right knee joint, resulting in a traumatic arthrotomy. This means his right knee is at risk for getting infected. Surgical debridement is indicated to decrease the risk of infection. In terms of his quadriceps injury, we will need to inspect this at the time of surgery and possibly repair this. We talked about the risks and benefits of sutures and of the quadriceps. Suture repair will help with healing, however it does leave a foreign body that slightly increased risk of infection. If we suture it we will plan on using monofilament sutures to decrease risk of infection. Will plan on readmitting him to the hospitalist service after surgery for 24 hours of IV antibiotics. He has been n.p.o. since midnight last night. After reviewing the risks and benefits of surgery, alternatives, and expected outcomes he elected to proceed with surgery. All questions were answered. Informed consent was signed. Proceed to the operating room today for irrigation and debridement of right knee traumatic arthrotomy. 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 He was brought to the emergency room where the ER physicians inspected his wound, performed x-rays, and did a irrigation and debridement. Location of wound highly concerning for traumatic arthrotomy. Wound was closed skin only in the emergency room yesterday. He was admitted overnight to the internal medicine service. He has been n.p.o. since midnight last night with plan for surgery today. Patient was seen and examined on the floor this morning. He reports his knee is a little bit more swollen and painful this morning. He said he took some Tylenol. Denies any fevers or chills. Denies numbness or tingling down his leg. Of note, there is a family history of malignant hyperthermia in one of his cousins. He has never been tested for this. Allergies Allergy/AdvReac Type Severity Reaction Status Date / Time No Known Allergies Allergy Verified 05/09/25 17:14 Home Medications Medication Instructions Recorded Confirmed Type cholecalciferol (vitamin D3) 25 25 mcg PO DAILY 11/27/19 05/09/25 History mcg (1,000 unit) capsule lorazepam 0.5 mg tablet 0.25 mg PO BID PRN Anxiety 04/12/23 05/09/25 History cyclobenzaprine 10 mg tablet 10 mg PO BID PRN MUSCLE SPASMS 06/11/24 05/09/25 History acetaminophen 500 mg tablet 500 mg PO Q6H PRN Pain 05/09/25 05/09/25 History (Tylenol Extra Strength) ibuprofen 200 mg tablet (Advil) 200 mg PO Q6H PRN Pain 05/09/25 05/09/25 History Patient History Medical History History of anesthesia reaction pts states that after anesthesia pt experiences increased irritability a nd hyperactivity for approx 1-2 weeks following Generalized headaches Shoulder pain Right side, "pinched nerve" Lumbar herniated disc History of COVID-19 11/2021, resolved Osteoarthritis Restrictive airway disease No inhaler need "for a long time" Surgical History History of lithotripsy H/O metal removed from eye Hx of cystoscopy + stone basketing Family history of malignant hyperthermia Cousin on father side was diagnosed/tested. No personal issues with surgery/anesthesia per patient. Patient has not had formal MH testing. MH precautions used in past per [place] records. Family History Father Heart disease Nephrolithiasis Mother , at 80 years of age from BRCA; on 43 pills at the time of her . 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 Right lower extremity exam: Patient has an approximately 6 cm long laceration starting on the lateral border the quadriceps about 3 cm above the patella and extending laterally. This has been closed with nylon sutures. The location of this is overlying the suprapatellar pouch of the knee. Patient is able to do a straight leg raise albeit with significant difficulty. Range of motion severely limited from 10 to 35 degrees. There is no redness or drainage around the wound. Trace effusion is noted in the knee. Distally he is neurovascularly intact. Results & Data Vital Signs (Past 12 Hours) Vital Signs Temp Pulse Resp BP Pulse Ox O2 Del Method 05/10/25 07:34 37.1 C 85 16 123/61 96 Room Air Diagnostic Findings X-rays done yesterday in the emergency room AP and lateral of the right knee show a soft tissue shadow at the region of his lacerations about 5 cm above the superior pole of the patella. No fractures are visualized.
[2025-05-10] MEDS ORDERED: ATROPINE SULFATE 0.1 MG/ML 10ML SYR IV PRN (12:21)
[2025-05-10] MEDS ORDERED: ONDANSETRON INJ 2 MG/ML 2 ML VIAL IV PRN (12:21)
[2025-05-10] MEDS ORDERED: HYDROmorphone INJ 1 MG/ML SYRINGE IV PRN (12:21)
--- NOTE | 2025-05-10 13:04 | Pharmacy Report ---
Pharmacy PK ABX Note - Date of Service May 10, 2025 - Assessment and Plan Assessment * 64 year old M receiving pip/tazo and vancomycin after R leg injury from a circular saw. High risk for developing infection and plan for I&D to reduce risk. * SCr stable and at/near baseline Plan Vancomycin * Loading dose: 1250 mg IV x 1 * Maintenance dose: 1000 mg IV every 24 hours * Regimen is predicted to achieve target AUC/JESS of 400-600 mg/L.hr * Random level ordered for 05/12 w AM labs Pharmacy will continue to follow and will adjust dose/frequency as necessary. Thank you. Pharmacy has transitioned to AUC monitoring for vancomycin. AUC/JESS is the preferred PK/PD target and is associated with decreased risk of nephrotoxicity compared to traditional trough targets.
[2025-05-10] MEDS: BUPIVACAINE/EPINEPHRINE 0.5% MPF 1:200,000 30 ML VIAL ONE (14:05)
--- NOTE | 2025-05-10 14:28 | Operative Report ---
Post Operative Report Pre & Post Diagnosis Operation Date: 05/10/25 12:00 Preoperative diagnosis: Right knee circular saw injury with traumatic arthrotomy. Postoperative diagnosis: Right knee circular saw injury with traumatic arthrotomy I identified the patient and participated in the time-out.: Yes Procedure Operation Date: 05/10/25 12:00 Irrigation and debridement right knee circular saw injury and traumatic arthrotomy to the joint Surgeon Izaiah Eubanks MD Tour Consultant Francisco Haynes PA-C. No resident or fellow was available to assist. Estimated Blood Loss 25 Findings Consistent with Post-Op Diagnosis Specimens 1 set of deep cultures was sent after the superficial irrigation had been performed with 6 L of normal saline Anesthesia Type General Complications none Disposition Disposition: Recovery Room Indications 64-year-old male, injured his right knee using a circular saw yesterday. Presented to the emergency room where he was noted to have a laceration on the superior lateral aspect of his right knee with involvement of the vastus lateralis. The emergency room team performed irrigation, debridement and closure of the skin. Patient was admitted overnight to the hospitalist service. I saw him this morning and discussed the injury. The location of this injury is at high risk for traumatic arthrotomy, placing him at risk for septic arthritis in the right knee. I had a long discussion with the patient about his injury. Surgery is recommended to perform a formal operative irrigation and debridement of his wound. After reviewing the risks and benefits of surgery, alternatives to surgery, and expected outcomes he elected to proceed. All quest ions were answered. Informed consent was signed. Description of Procedure Patient was identified in the preoperative holding area where the surgical site was marked. He was brought back to the operating room where he moved onto the operating room table and general anesthesia was administered. Exam under anesthesia was performed demonstrating range of motion of 5 to 130 degrees. All bony prominences were padded. Perioperative antibiotics were administered. He was prepped and draped in the usual sterile fashion. Prior to incision a multidisciplinary timeout was called. All in the room were in agreement. I began by inspecting the wound. It was approximately 9 cm in length, located over the superior lateral aspect of the knee, curved with a convex portion of the curved pointing posteriorly and distally towards the tip of the fibular head. A separate Delatorre stand was used for any and all instruments that would be used in the dirty portion of the procedure. Nylon sutures placed in the emergency room were removed and placed onto a lap sponge, which was then discarded. I then extended the incision 1 cm on the medial side and 2 cm on the lateral side to improve visualization. I dissected between the skin and the fascia proximally and distally, then sutured the skin flap proximally to improve visualization. The deeper portion of the wound was then inspected. The laceration from the saw extended obliquely in a distal to proximal fashion through the skin and fascia into the vastus lateralis. There were 2 longitudinal splits in the vastus lateralis, one that was more anteriorly for distance of about 3 cm and a second one that was about 2 cm posterior to this that was a little longer about 3-1/2 cm in length. I inspected each of these splits. A small piece of grass was noted in the more anterior split. Throughour the entire wound there were 10-16 small black dots which could have been either hemorrhage or dirt. These were carefully removed with a Adson forceps. No other gross contamination was noted. Next, I inspected the wound for evidence of a traumatic arthrotomy. I was not able to place my finger into the suprapatellar pouch so it was initially unclear if the synovial lining of the joint had been violated. Therefore I elected to perform a saline load test. An 18-gauge spinal needle was inserted from the superior medial aspect of the knee into the suprapatellar pouch. I then loaded the knee with approximately 100 cc of saline. I could then visualize saline coming out through the lateral wound between the splits and the vastus lateralis indicating that there was a small traumatic arthrotomy. Therefore irrigation debridement of the knee joint was indicated. Prior to irrigating out the knee joint I ran 6 L of normal saline through the superficial wound which had already been completely debrided to remove any gross contamination. This was with cystoscopy tubing. Once the 6 L irrigation was complete, I then took a single deep culture of the wound and this was sent for aerobic and anaerobic cultures and Gram stain. We then changed our gloves and placed a new clean drape. Dirty instruments were isolated on the [place] stand. Clean [employer]'s were then placed through the more anterior split in the vastus lateralis which was closest to the suprapatellar pouch. This is where there seemed to be more saline coming from with the saline load test. I then incised the the synovium for a length of about 1 cm at which point more saline came out through the wound. Through this small arthrotomy a clean tip on the cystoscopy tubing was inserted into the suprapatellar pouch of the knee. Another 3 L of saline was then used to irrigate out the knee. Of note, there was no gross cont amination that came out while irrigating out the knee. At this point we were ready for closure. No suturing was indicated for the small split in the synovium or the vastus lateralis musculature as the splits were in line with the muscle fibers. A #1 PDS was used to close the fascia in running fashion. The knee was then brought through full range of motion and the fascial repair held nicely. I then closed the skin with 3-0 nylon sutures in vertical mattress interrupted fashion. 30 cc of half percent Marcaine with epinephrine was injected in the subcutaneous tissues for postoperative pain control. A sterile dressing was applied to include Xeroform gauze and a compressive Kalyan wrap. Patient was then awoke from anesthesia and transferred to the recovery room in stable condition. Postoperative course: Patient will be readmitted to the hospitalist team. He will receive 24 hours of empiric IV antibiotics. He can discharge home tomorrow on 14 days of oral Augmentin. Follow-up in the orthopedic clinic in 2 weeks for suture removal. He can weight-bear as tolerated. Range of motion 0 to 90 degrees for the first 2 weeks. He can progress beyond 90 degrees after 2 weeks. Aspirin for DVT prophylaxis. I attest to the content of the Intraoperative Record and any orders documented therein. Any exceptions are noted below.
--- NOTE | 2025-05-10 14:36 | Anesthesiology Progress Note ---
Date of Service May 10, 2025 Anesthesia Post Procedure Vital Signs Vital Signs: Temp Pulse Pulse Pulse Resp BP BP 05/10/25 14:30 67 16 120/75 05/10/25 14:20 36.7 C 78 14 121/85 05/10/25 07:34 37.1 C 85 16 123/61 05/09/25 20:15 36.6 C 83 18 133/82 05/09/25 19:38 79 20 113/78 05/09/25 19:00 79 20 113/78 05/09/25 17:21 73 18 117/84 05/09/25 15:58 36.6 C 99 H 22 129/92 Pulse Ox O2 Del Method O2 Flow Rate 05/10/25 14:30 96 Oxymask 4 05/10/25 14:20 95 Oxymask 4 05/10/25 07:34 96 Room Air 05/09/25 20:15 96 Room Air 05/09/25 19:38 97 Room Air 05/09/25 19:00 97 Room Air 05/09/25 17:21 98 Room Air 05/09/25 15:58 95 Room Air Pain Intensity Right Knee: Pain Intensity: 9 Head: Pain Intensity: 6 Transfer of Care Handoff Completed per policy Notes Mental Status: alert / awake / arousable and participated in evaluation Patient Amnestic to Procedure: Yes Nausea / Vomiting: adequately controlled Pain: adequately controlled Airway Patency, RR, SpO2: stable & adequate BP & HR: stable & adequate Hydration State: stable & adequate Anesthetic Complications: no major complications apparent and Pt Satisfied with anesthetic care
--- NOTE | 2025-05-10 14:49 | Operative Report ---
Post Operative Report Pre & Post Diagnosis Pre & Post Diagnosis Operation Date: 05/10/25 12:00 Preoperative diagnosis: Right knee circular saw injury with traumatic arthrotomy. Postoperative diagnosis: Right knee circular saw injury with traumatic arthrotomy I identified the patient and participated in the time-out.: Yes Procedure Operation Date: 05/10/25 12:00 Actual Procedures p Irrigation and debridement right knee circular saw injury and traumatic arthrotomy to the joint - Izaiah Eubanks MD Surgeon Izaiah Hernandez MD [employer] Winding Operator Francisco Haynes PA-C. No resident or fellow was available to assist. Estimated Blood Loss 25 Findings Consistent with Post-Op Diagnosis Specimens Culture R knee Description of Procedure I was present for the entire case. I assisted with patient positioning, prepping, draping, retraction, wound closure, dressing application. Please refer to Dr. Eubanks's procedure note for full details. I attest to the content of the Intraoperative Record and any orders documented therein. Any exceptions are noted below.
[2025-05-10] MEDS ORDERED: Nursing to Pharmacy Communication SCH (15:00)
[2025-05-10] MEDS ORDERED: NALOXONE HCL 0.4 MG/1 ML VIAL/CARP IV PRN (15:02)
[2025-05-10] MEDS: PIPERACILLIN/TAZOBACTAM 4.5 GM/100 ML BAG IV ONE (16:41)
[2025-05-10] MEDS ORDERED: VANCOMYCIN 750 MG in SODIUM CHLORIDE 0.9% 250 ML IV SCH (18:00)
[2025-05-10] MEDS: VANCOMYCIN HCL 1,000 MG/270 ML BAG IV SCH (20:13)
[2025-05-10] MEDS: DICLOFENAC SODIUM 75 MG TABCR PO SCH (20:15)
[2025-05-10] MEDS: PIPERACILLIN/TAZOBACTAM 4.5 GM/100 ML BAG IV SCH (21:43)
--- NOTE | 2025-05-10 22:18 | Hospitalist Progress Note ---
Date of Service May 10, 2025 Assessment & Plan (1) Contact with powered saw as cause of accidental injury: Plan: As above in the History of Present Illness. Hold OFF heparin 5000 units SQ q8 or heparin 5000 units SQ q12 for pharmacologic DVT prophylaxis as the risk of uncontrolled bleeding from right [id number] wound outweighs any benefit conferred upon patient were he to receive either heparin 5000 units SQ q8 or heparin 5000 units SQ q12 for pharmacologic DVT prophylaxis on admission date 05/09/2025. Await I & D with Orthopedic Surgery Service of Dr. Izaiah Eubanks on 05/10/2025, 12:00pm. Admission and Anticipated Discharge Date Admission Date: May 09, 2025 Subjective "My right leg is swollen and hurts a bit; it's like a 5 (out of 10 point intensity pain scale) now. No bleeding or pus coming out. The nurse said that I will be going to the OR at noon today." Review of Systems Constitutional: Positive for right [id number] pain and swelling. Negative for antecedent/coincident fevers, chills, diaphoresis, cough, wheeze, sore throat, hemoptysis, chest pains, palpitations, pleurisy, nausea, vomiting, diarrhea, abdominal pain, pelvic pain, hematemesis, hematochezia, melena, hematuria, dysuria, frequency, urgency, headaches, dizziness, lightheadedness, visual changes, hearing changes, weakness, falls, syncope, travel history, sick contacts, or food/drug ingestions novel or new. All other review of systems are reported as negative by the patient on 05/10/2025. Physical Exam Constitutional: General: Comfortable, cooperative, coherent. Wide awake and alert. Not confused, lethargic, or obtunded. Patient speaks in complete, fluent, and articulate sentences without pause, interruption, cough, or wheeze. HEENT: Normocephalic, atraumatic. Pupils equally round and reactive to light. No nystagmus, gaze paresis, anisocoria, miosis, mydriasis, hyphema, scleral injection, conjunctivitis, or pterygium. No otorrhea. No pharyngeal erythema, edema, or discharge. Neck: Supple, no stridor, bruit, goiter, or hepato-jugular reflux. Jugular venous pressure is estimated to be 3 cm above the sternal angle of Ross, which in turn, is 5 cm above the level of the right atrium; with jugular venous pressure estimated to be 8 cm, then, there is no jugular venous distention on 05/10/2025. Lymphatics: No cervical (anterior/posterior), supraclavicular, infraclavicular, axillary, epitrochlear, or inguinal adenopathy. Chest: Symmetric rise and fall with respirations. Non-tender to palpation. Lungs: Clear to auscultation and percussion. No audible expiratory wheeze, egophony, pectoriloquy, increase in tactile fremitus, or flatness/dullness to percussion at the bases. Heart: RRR. S1 and S2 noted. No S3 or S4 summation gallop. No tripartite friction rub. Grade II/ early systolic murmur @ LLSB without radiation to the carotids, axilla, or back, and which remains invariant in regards to the respiratory cycle. Abdomen: Soft, non-tender, non-distended. No rebound, guarding, Zaman's sign, or organomegaly. Bowel sounds auscultated in all 4 quadrants. Extremities: No clubbing, cyanosis, or edema in upper extremities or lower extremities bilaterally. 2+ pedal pulses bilaterally. Skin: No decubitus ulcer, exanthem, or enanthem. Linear wound 9 cm long and 5 cm deep proximal to the right knee and cutting into the lateral head of the right quadriceps tendon proximal to its insertion into the right patella. Hemostasis was achieved by manual pressure. Surrounding edema, warmth, and tenderness on 05/10/2025. No surrounding erythema, induration, crepitus, fluctuance, discharge (sanguineous, serous, suppurative), malodor, ulceration, or lymphangitic streaking is noted at this linear wound on 05/10/2025. Genito-urinary: No urethral discharge. No moreno catheter. Neurology: Alert and oriented in regards to person, place, time, and situation. DTR+. 5/5 motor strength in all 4 extremities, both proximally and distally. No myoclonus, tremors, or tics. Psychiatry: No homicidal ideation. No suicidal ideation. No flat affect; smiles appropriately. Results & Data Results & Data Vital Signs (Past 12 Hours) Vital Signs Temp Pulse Pulse Resp BP Pulse Ox O2 Del Method 05/10/25 22:13 37.2 C 86 18 100/54 L 95 Room Air 05/10/25 18:00 37.0 C 85 16 130/86 96 Room Air 05/10/25 17:13 36.7 C 82 16 148/86 H 98 Room Air 05/10/25 16:17 36.4 C L 75 16 130/85 98 Room Air 05/10/25 15:34 36.4 C L 75 16 116/74 98 Room Air 05/10/25 15:03 36.8 C 70 16 129/81 98 Room Air 05/10/25 14:50 36.6 C 70 16 112/81 97 Room Air 05/10/25 14:40 77 20 111/78 96 Room Air 05/10/25 14:30 67 16 120/75 96 Oxymask 05/10/25 14:20 36.7 C 78 14 121/85 95 Oxymask O2 Flow Rate 05/10/25 22:13 05/10/25 18:00 05/10/25 17:13 05/10/25 16:17 05/10/25 15:34 05/10/25 15:03 05/10/25 14:50 05/10/25 14:40 05/10/25 14:30 4 05/10/25 14:20 4 Laboratory Results WBC 9.00, N73 L17 M 9, Hb 13.1, MCV 91.4, MCHC 35.0, platelet 264 (05/09/2025, 4:05pm). WBC 11.47, N70 L18 M12, Hb 13.0, MCV 92.1, MCHC 33.7, platelet 269 (05/10/2025, 6:31am). INR 1.00 (05/09/2025, 8:58pm). Na 139, K 4.0, BUN 15, creatinine 1.06, glucose 104, Ca 8.4 (05/09/2025, 8:58pm). Na 139, K 4.0, BUN 16, creatinine 1.13, glucose 90, Ca 8.4 (05/10/2025, 6:31a m). Diagnostic Findings Right knee x-ray, 2 views (05/09/2025, 4:17pm): soft tissue injury without definite fracture or foreign body EKG #1 (05/09/2025, 9:09pm): NSR @ 80, AZ 162, QTC 433, no acute ST depressions/elevations, TWI, or q waves (by my review). EKG #2 (05/10/2025, 9:50am): NSR @ 80, AZ 160, QTC 424, no acute ST depressions/elevations, TWI, or q waves (by my review). PG Care Time/CCT Total # of Minutes Spent Total Time Spent with Patient: Total time spent is greater than 50% in coordination of care (as documented) at patient's floor/unit and/or counseling patient: Coding Level of Care Code 33419 SUB INP/OBS CARE 2/35MIN Diagnoses Contact with powered saw as cause of accidental injury W31.2XXA
[2025-05-11] MEDS: COUGH DROP (SUGAR FREE) LOZ 24 LOZ/1 BOX BUCCAL PRN (02:45)
[2025-05-11 05:49] VITALS: PULSE 96; TEMP 98.8; O2SAT 95
[2025-05-11 06:26] LABS: Hematocrit (blood only) 39.0 % (42.0-52.0); Hemoglobin 12.6 g/dl (14.0-18.0); Immature Granulocytes # (auto) 0.03 K/uL (0.01-0.20); Immature Granulocytes % (auto) 0.3 %; Mean Corpuscular Hemoglobin 30.8 pg (25.0-34.0); Mean Corpuscular Volume 95.4 fL (80.0-100.0); Platelet Count 237 K/uL (130-400); RDW Standard Deviation 48.9 fL (36.4-46.3); Red Blood Count 4.09 M/uL (4.70-6.10); White Blood Count 9.21 K/ul (4.8-10.8)
[2025-05-11 06:51] LABS: Creatinine Clr Calc Pharmacy 49.7 ml/min
[2025-05-11 07:24] VITALS: BP 104/65; RESP 16
[2025-05-11] MEDS: ASPIRIN 81 MG ECTAB PO SCH (08:47)
--- NOTE | 2025-05-11 13:00 | Orthopedic Progress Note ---
Date of Service May 11, 2025 Assessment & Plan (1) Laceration of right knee: Plan: Patient may discharge home today. Weight-bear as tolerated with walker. Work on knee range of motion 0 to 90 degrees. Follow-up in the orthopedic clinic in 2 weeks. Oral Augmentin for treatment of his dirty wound. (2) Injury of right quadriceps femoris muscle: Admission and Anticipated Discharge Date Admission Date: May 09, 2025 Subjective Patient seen postop day 1 following irrigation debridement right knee circular saw injury with traumatic arthrotomy and damage to the quadriceps muscle. Reports he did well overnight. He was able to walk with physical therapy this morning. Feels ready to discharge home today. No fevers or chills. Physical Exam Physical Exam: On exam he is resting comfortably in bed in no acute distress. The dressing is clean dry and intact and was left in place. Distally neurovascularly intact. Results & Data Vital Signs (Past 12 Hours) Vital Signs Temp Pulse Resp BP Pulse Ox O2 Del Method 05/11/25 07:22 37.1 C 96 H 16 104/65 95 Room Air 05/11/25 05:46 37.1 C 96 H 18 116/61 95 Room Air 05/11/25 02:08 36.9 C 94 H 16 101/63 93 Room Air Diagnostic Findings Cultures on the OR yesterday are preliminarily showing no growth. H&H are stable.
--- NOTE | 2025-05-11 13:08 | Electrocardiogram Report ---
Test Reason : Blood Pressure : */* mmHG Vent. Rate : 80 BPM Atrial Rate : 80 BPM P-R Int : 160 ms QRS Dur : 98 ms QT Int : 368 ms P-R-T Axes : 49 -11 20 degrees QTcB Int : 424 ms Normal sinus rhythm Normal ECG When compared with ECG of 09-May-2025 21:09, (unconfirmed) No significant change was found Confirmed by Sha Jones ([id number]) on 05/11/2025 1:08:00 PM Referred By: REFERRED SELF Confirmed By: Sha Jones
--- NOTE | 2025-05-11 13:32 | Electrocardiogram Report ---
Test Reason : Blood Pressure : */* mmHG Vent. Rate : 80 BPM Atrial Rate : 80 BPM P-R Int : 162 ms QRS Dur : 90 ms QT Int : 376 ms P-R-T Axes : 63 -10 32 degrees QTcB Int : 433 ms Normal sinus rhythm Normal ECG When compared with ECG of 25-Apr-2023 15:33, No significant change was found Confirmed by Sha Jones ([id number] on 05/11/2025 1:31:57 PM Referred By: REFERRED SELF Confirmed By: Sha Jones
--- NOTE | 2025-05-11 13:45 | Discharge Summary ---
Discharge Summary Date of Service May 11, 2025 Principal Dx & Hospital Course #1 = Principal Diagnosis (1) Contact with powered saw as cause of accidental injury: As above in the History of Present Illness. Hold OFF heparin 5000 units SQ q8 or heparin 5000 units SQ q12 for pharmacologic DVT prophylaxis as the risk of uncontrolled bleeding from right [id number] wound outweighs any benefit conferred upon patient were he to receive either heparin 5000 units SQ q8 or heparin 5000 units SQ q12 for pharmacologic DVT prophylaxis on admission date 05/09/2025. Await I & D with Orthopedic Surgery Service of Dr. Izaiah Eubanks on 05/10/2025, 12:00pm. 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 I feel ok now. No pain at all. The wound is wrapped up with this BELA bandage. The ER doctor said that tomorrow morning (05/10/2025 am) an Orthopedic Surgeon Dr. Izaiah Eubanks will come by and washout my right above the knee wound, but I would like to see my own orthopedic surgeon Dr. Sohan Orozco as he repaired my right shoulder rotator cuff repair last year (03/14/2024, 12:25pm) and Dr. Orozco was excellent, so if I can keep the same orthopedic surgeon to look at my right leg wound tomorrow, that would be great. No offense to Dr. Eubanks at all; I just know Dr. Orozco from last year." Patient denies antecedent/coincident fevers, chills, diaphoresis, shortness of breath, cough, wheeze, sore throat, hemoptysis, chest pains, palpitations, pleurisy, nausea, vomiting, diarrhea, abdominal pain, pelvic pain, hematemesis, hematochezia, melena, hematuria, dysuria, frequency, urgency, headaches, dizziness, lightheadedness, visual changes, hearing changes, weakness, falls, syncope, trauma, travel history, sick contacts, or food/drug ingestions novel or new. All other review of systems are reported as negative by the patient on admission date 05/09/2025. In [facility] ER bed #B12B, patient was afebrile @ 36.6 degrees Celsius, HR 99, RR 22, O2 sat 95% on room air, and BP 129/92 (02/2025, 3:58pm). Exam was noted for a linear wound 9 cm long and 5 cm deep proximal to the right knee and cutting into the lateral head of the right quadriceps tendon proximal to its insertion into the right patella. Hemostasis was achieved by manual pressure. No surrounding erythema, edema, induration, warmth, tenderness, crepitus, fluctuance, discharge (sanguineous, serous, suppurative), malodor, ulceration, or lymphangitic streaking was noted at this linear wound. Labs in [facility] ER bed #B12B included: WBC 9.00, N73 L17 M9, Hb 13.1, MCV 91.4, MCHC 35.0, platelet 264 (05/09/2025, 4:05pm). INR (05/09/2025, 8:30pm)(sofia-procedural evaluation). Additional testing in [facility] ER bed #B12B included: Right knee x-ray, 2 views (05/09/2025, 4:17pm): soft tissue injury without definite fracture or foreign body EKG (05/09/2025, 9:09pm): NSR @ 80, MD 162, QTC 433, no q waves, no acute TWI, no acute ST depressions/elevations (by my review). Patient was subsequently admitted to the inpatient hospitalist service @ [facility] on 05/09/2025 with the following diagnosis: 1. Acute right etflz-hzj-byce circular saw wound. To address #1, patient's wound was irrigated with 0.9% NS and then wrapped with gauze and BELA bandage. Patient also received cefazolin 2g IV x 1 dose (05/09/2025, 4:28pm), daptomycin 375mg IV x 1 dose (05/09/2025, 5:50pm), ceftriaxone 2g IV x 1 dose (05/09/2025, 5:50pm) in [facility] ER bed #B12B. Patient continued with empiric vancomycin 1g IV q12 (05/09/2025, 9:00pm) and ceftriaxone 2g IV daily (05/10/2025, 9:00am). Patient subsequently underwent formal Orthopedic Surgery Service evaluation with Dr. Izaiah Eubanks (05/10/2025, 11:59am), followed by I & D with Dr. Reyes (05/10/2025, 2:01pm). Patient subsqequently received zosyn 4.5g IV q8 x 3 doses (05/10/2025, 4:41pm, 9:43pm; 05/11/2025, 5:31am) and vancomycin 1g IV daily x 1 dose (05/10/2025, 8:13pm). Patient was subsequently discharged back to his home on 05/11/2025 with electronic prescriptions transmitted on 05/11/2025 to his [id number], [address] [place] [address] for: a. augmentin 875mg/125mg PO q12, #10 tablets, no refills. b. doxycycline 100mg PO q12, #10 tablets, no refills. Patient was also discharged back to his home on 05/11/2025 with electronic prescriptions transmitted on 05/11/2025 to his [id number], [address] [place] [address] for: c. diclofenac 75mg PO bid, #28 tablets, no refills. d. tramadol 50mg PO q4 prn pain, #18 tablets, no refills. Patient was advised by Orthopedic Surgeon Mr. Francisco Haynes PA-C, to take diclofenac 75mg PO bid x 2 weeks in order to prevent heterotopic ossification. Patient was also advised to continue with hocj-cgp-kcxhxgd tylenol 1000mg PO q8 ccwooj-azj-rqzhx. Patient was also advised to follow up with Orthopedic Surgeon Mr. Francisco Haynes PA-C, in 2 weeks. Patient reports that he will comply with all of the recommendations above. Discharge Exam Constitutional General: Comfortable, cooperative, coherent. Wide awake and alert. Not confused, lethargic, or obtunded. Patient speaks in complete, fluent, and articulate sentences without pause, interruption, cough, or wheeze. HEENT: Normocephalic, atraumatic. Pupils equally round and reactive to light. No nystagmus, gaze paresis, anisocoria, miosis, mydriasis, hyphema, scleral injection, conjunctivitis, or pterygium. No otorrhea. No pharyngeal erythema, edema, or discharge. Neck: Supple, no stridor, bruit, goiter, or hepato-jugular reflux. Jugular venous pressure is estimated to be 3 cm above the sternal angle of Ross, which in turn, is 5 cm above the level of the right atrium; with jugular venous pressure estimated to be 8 cm, then, there is no jugular venous distention on 05/11/2025. Lymphatics: No cervical (anterior/posterior), supraclavicular, infraclavicular, axillary, epitrochlear, or inguinal adenopathy. Chest: Symmetric rise and fall with respirations. Non-tender to palpation. Lungs: Clear to auscultation and percussion. No audible expiratory wheeze, egophony, pectoriloquy, increase in tactile fremitus, or flatness/dullness to percussion at the bases. Heart: RRR. S1 and S2 noted. No S3 or S4 summation gallop. No tripartite friction rub. Grade II/ early systolic murmur @ LLSB without radiation to the carotids, axilla, or back, and which remains invariant in regards to the respiratory cycle. Abdomen: Soft, non-tender, non-distended. No rebound, guarding, Zaman's sign, or organomegaly. Bowel sounds auscultated in all 4 quadrants. Extremities: No clubbing, cyanosis, or edema in upper extremities or lower extremities bilaterally. 2+ pedal pulses bilaterally. Skin: No decubitus ulcer, exanthem, or enanthem. Linear wound 9 cm long and 5 cm deep proximal to the right knee and cutting into the lateral head of the right quadriceps tendon proximal to its insertion into the right patella. Hemostasis was achieved by manual pressure. Surrounding edema, warmth, and tenderness on 05/10/2025. No surrounding erythema, induration, crepitus, fluctuance, discharge (sanguineous, serous, suppurative), malodor, ulceration, or lymphangitic streaking is noted at this linear wound on 05/10/2025. Genito-urinary: No urethral discharge. No moreno catheter. Neurology: Alert and oriented in regards to person, place, time, and situation. DTR+. 5/5 motor strength in all 4 extremities, both proximally and distally. No myoclonus, tremors, or tics. Psychiatry: No homicidal ideation. No suicidal ideation. No flat affect; smiles appropriately. Discharge Plan Discharge Items Patient Disposition: Home - Self-Care Reason For Visit: ACUTE RIGHT QUADRICEP(LATERAL HEAD) TEAR BY CIRCUL Discharge Diagnosis: Acute right quadriceps (lateral head) tear by circular saw used to cut down tree stump in patient's yard. Condition on Discharge: Good Activity: Resume your previous activity Lifting: Gradually increase as tolerated Bathing: No limitations Sexual Activity: When tolerated Exercise/Sports: As tolerated Driving/Machine Use: No limitations Weightbearing: Full weightbearing Non-emergency contact: Primary Care Provider Call non-emergency contact if: you have any medication questions Follow-up/Referrals: Tommy Luis [Primary Care Provider] - Francisco Haynes PA [Physician Rn Psych] - (Follow up in 2 weeks. If you have not heard from office by 05/13/25, call to schedule.) Diet: Heart Healthy Addtl Attending Provider Instructions: 1. See your PCP Mr. Tommy Luis PA-C, within 5-7 days of hospital discharge. 2. See your Orthopedic Surgeon Mr. Francisco Haynes PA-C, within 14 days of hospital discharge. Addtl Helpdesk Technician Provider Instructions: Orthopedic discharge instructions Post-operative Instructions Dear Patient and Family/Friends, Before you are discharged from the hospital, it is important to know what to expect when you get home after surgery. To that end, we have created this sheet of discharge instructions which covers many commonly asked questions. Make sure you go through this sheet in its entirety with your nurse before you are discharged. Please note that we will go over the specifics of your surgery and recovery when you return for your first post-operative visit. Sincerely, Dr. Eubanks Pain Expect to be in a fair amount of pain after surgery. Remember, our goal is not to eliminate your pain, but to make it tolerable. It is a good idea to stay ahead of your pain by taking the medications you were prescribed once you get home. Typically, the pain starts improving 3-7 days after surgery. You should start weaning off the narcotic pain medication (oxycodone, hydrocodone, hydromorphone, morphine) as soon as your pain improves. Please call our office if your pain is not adequately controlled. - Tylenol 1000 mg every 8 hours - Diclofenac 75 mg twice daily for the next 2 weeks. Important to take this to prevent heterotopic ossification - Tramadol as prescribed for breakthrough pain DVT prevention Aspirin 81 mg once daily for the next 2-4 weeks Antibiotics - Take as prescribed until completion. Ice Ice your operative site at least 5 times a day for 15-30 minutes at a time. Make sure you have a thin cloth between the ice or cooling unit and your skin to prevent singh bite. This is especially important if you received a nerve block. Continue icing your operative site for the first 5-7 days after surgery, then as needed. Diet/Nausea/Vomiting Start by drinking clear liquids and eating crackers. If you can tolerate this, then you may resume your normal diet. If you feel nauseated or vomit, take Zofran/ondansetron (if prescribed). Please call our office if you have intractable nausea or vomiting, or, if after hours, you may go to the Emergency Room for help. Constipation Constipation is a common side effect of narcotic pain medication. If you have not had a bowel movement within 2 days after surgery, we recommend purchasing an over the counter laxative such as Milk of Magnesia, Dulcolax, or Miralax from a local pharmacy, and taking it as instructed. Call our clinic if any questions. Nerve block The anesthesia team sometimes places a nerve block to help with post-operative pain control. This results in significant numbness and inability to move the extremity. The nerve block usually wears off in 8-12 hours, but sometimes can last up to 24 hours. Please call our office if you are still unable to move your extremity after 24 hours, unless you received a pain pump to take home. Nerve blocks typically wear off quickly, so start taking pain medication as soon as you start feeling soreness near your surgical site. Weight bearing and Range of Motion. Weightbearing as tolerated with the use of crutches or walker. Limit range of motion from fully straight to bending 90 degrees for the first 2 weeks. Wound care and showering We will inspect your wound at your first post-operative visit, and may do a dressing change at that time. Most patients will be in a water-proof dressing that is removed 14 days after surgery. It is normal to see some dried blood on the dressing. Do not remove your dressing, paper strips or sutures yourself unless you are given permission. Showering is allowed the day after surgery. Do not scrub or remove any dressings. The wound should not be submerged underwater (i.e. in a bathtub or pool) until 4 weeks after surgery SELVIN stockings If you were given white stockings, these are to be worn at all times except to shower (on both legs) for the first 2 weeks after surgery. Driving You may not drive while taking narcotic pain medication or while in a cast, splint, sling or brace. You, the patient, need to make the final determination about when you are safe to drive, however, the earliest you may consider driving after surgery is below: Hand/Wrist/Elbow Surgery: 3 days Shoulder Surgery: 2 weeks Hip,/Knee/Ankle Surgery: 4 weeks Fracture repair: 6 weeks Return to Work Your return to work depends on what surgery was done and what type of work you do. Please bring any paperwork your employer needs completed to your first post-operative visit. Also, bring a description of your job duties, as this helps us to understand what risks you may face at work. Travel Avoid long distance travel (greater than 1 hour) in airplanes and cars for the first 6 weeks after surgery. If you must travel, you need to have a Doppler ultrasound done before you travel to rule out a blood clot in your legs. Follow-up You should have a follow-up appointment already scheduled 1-2 days after surgery. If not, please contact our office to make this appointment before you leave the hospital. When to call the office It is normal to have swelling and bruising in the limb that was operated on. This will improve with time. It is also normal to have fevers for the first 2 days after surgery. Reasons you should call your doctor include: Uncontrolled pain; Nausea, vomiting, or constipation that does not improve with medication; Fevers over 101.5, chills, sweats; Drainage or bleeding from the wound; Foul odor; Spreading areas of redness; Any other concerns. Contact Information Please call Dr. Eubanks's office at [phone] with any concerns. Pending Studies at Discharge: No Stand-Alone Forms: My [employer] direct marketing concepts, Smoking Cessation Medications and DC Order Prescriptions: New tramadol 50 mg tablet 50 mg PO Q4H PRN (Reason: pain) Qty: 18 0RF diclofenac sodium 75 mg tablet,delayed release (DR/EC) 75 mg PO BID 14 Days Qty: 28 1RF doxycycline hyclate 100 mg tablet 100 mg PO Q12H 5 Days Qty: 10 0RF amoxicillin-pot clavulanate 875-125 mg tablet 1 tab PO Q12H Qty: 10 0RF Continued lorazepam 0.5 mg tablet 0.25 mg PO BID PRN (Reason: Anxiety) cyclobenzaprine 10 mg tablet 10 mg PO BID PRN (Reason: MUSCLE SPASMS) cholecalciferol (vitamin D3) 25 mcg (1,000 unit) capsule 25 mcg PO DAILY acetaminophen [Tylenol Extra Strength] 500 mg Tablet 500 mg PO Q6H PRN (Reason: Pain) Rx Instructions: PER PT "USUALLY TAKE WITH ONE ADVIL, TOGETHER". Discontinued ibuprofen [Advil] 200 mg Tablet 200 mg PO Q6H PRN (Reason: Pain) Rx Instructions: PER PT "USUALLY TAKE WITH ONE TYLENOL, TOGETHER". Discharge Orders: Discharge Order (Routine); Ordered 05/11/25 Ordered By: Alex Ferrell Admission Data Admit Date/Time: 05/09/25 18:02 Attending Provider: Alex Ferrell Admit Provider: Alex Ferrell Primary Care Provider: Tommy Luis Other Providers: Izaiah Eubanks; Sj Patiño; Sohan Orozco Hospital Stay Data Consultations 05/09/25 17:50 Consult Orthopedic Surgery Stat ED Decision to Admit Stat 05/10/25 08:00 Consult Orthopedic Surgery Routine Procedures Performed Operation Date: 05/10/25 12:00 Actual Procedures p Irrigation and Debridement Right Knee to Joint (Right) - Izaiah Eubanks MD Pending Results Patient Have Any Pending Studies at Discharge: No Discharge Instructions Given to Patient (Per Discharging Provider) 1. See your PCP Mr. Tommy Luis PA-C, within 5-7 days of hospital discharge. 2. See your Orthopedic Surgeon Mr. Francisco Haynes PA-C, within 14 days of hospital discharge. Total Time Total Time Spent Total Time Spent (In Minutes): 35 minutes. Of this time period, 19 minutes were spent in coordinating patient's discharge. Coding Level of Care Code 55298 INP/OBS DISCH >30 MIN Diagnoses Contact with powered saw as cause of accidental injury W31.2XXA
== END 2025-05-11 14:29 | disposition home or self-care (01) | DRG 502 ==
LOC: ED 15:52 → 3N 18:02